=== PATIENT | female | born 1980 | race Caucasian/White ===

== ENCOUNTER → 2023-04-03 15:14 | Outpatient (BNVA) | payer BC, SELFPAY | PROVIDERS: PCP Student in an Organized Health Care Education/Training Program; Referring Provider Student in an Organized Health Care Education/Training Program; Visit Provider Physician Assistant Surgical ==

== ENCOUNTER 2023-04-24 14:44 | Outpatient (REF) | payer BC, SELFPAY ==
[2023-04-26 16:12] LABS: H Pylori Breath Test Negative (Negative)
== END 2023-04-24 14:45 | disposition home or self-care (01) ==
LOC: HO.LNP 14:44
PROVIDERS: PCP Student in an Organized Health Care Education/Training Program; Visit Provider Physician Assistant
DX: Z01.818 Encounter for other preprocedural examination (principal); E66.01 Morbid (severe) obesity due to excess calories; I10 Essential (primary) hypertension
CPT/HCPCS: 83013

== ENCOUNTER 2023-04-25 06:49 | Outpatient (REF) | payer BC, SELFPAY ==
--- NOTE | ~2023-04-25 | XR_ITS ---
EXAMINATION: XR CHEST CLINICAL INFORMATION: Preop COMPARISON: None available. TECHNIQUE: 2 views of the chest were obtained. FINDINGS: No significant abnormality is noted involving the heart, lungs, mediastinum, bony thorax or soft tissues. Degenerative changes of the spine. XR/XR chest 2V IMPRESSION: No evidence for acute disease in the chest.
[2023-04-25 07:07] LABS: MANUAL DIFF FLAG NO
[2023-04-25 07:52] LABS: Estimated Average Glucose 128 mg/dL; Hemoglobin A1c % 6.1 %
[2023-04-25 07:57] LABS: Basophils Percent Auto 0.3 % (0-2); Eosinophils Absolute Auto 0.1 X10*3/uL (0.0-0.4); Eosinophils Percent Auto 0.8 % (0-4); Hemoglobin 13.1 g/dl (12.0-16.0); Imm Gran Abs Auto 0.03 X10*3/uL (0.00-0.03); Imm Gran Pct Auto 0.3 % (0.0-0.4); Lymphocytes Absolute Auto 2.2 X10*3/uL (1.2-4.9); Lymphocytes Percent Auto 18.9 % (20-40); Mean Corpuscular HGB Conc 33.6 g/dl (31.0-35.0); Mean Corpuscular Hemoglobin 29.4 pg (27.0-33.0); Mean Corpuscular Volume 87.6 fL (80.0-98.0); Mean Platelet Volume 9.2 fL (9.4-12.3); Monocytes Absolute Auto 0.8 X10*3/uL (0.1-1.2); Monocytes Percent Auto 6.8 % (2-11); Neutrophils Absolute Auto 8.6 x10*3/uL (2.0-8.3); Neutrophils Percent Auto 72.9 % (45-73); Platelet Count 313 X10*3/uL (160-400); Red Blood Count 4.45 X10*6/uL (4.20-5.50); Red Cell Distribution Width 12.1 % (11.0-16.0); White Blood Count 11.8 X10*3/uL (4.8-10.8)
[2023-04-25 08:10] LABS: Alanine Aminotransferase 20 U/L (0-31); Albumin Level 4.4 g/dL (3.5-5.0); Alkaline Phosphatase 63 U/L (39-117); Anion Gap 15 (12-20); Aspartate Amino Transferase 24 U/L (5-31); Bilirubin Total 0.7 mg/dL (0.0-1.0); Blood Urea Nitrogen 12 mg/dL (9-16); C Reactive Protein 1.22 mg/dL (< or = 0.50); Calcium 9.2 mg/dL (8.4-10.2); Carbon Dioxide 21 mmol/L (22-29); Chloride 106 mmol/L (96-108); Cholesterol 225 mg/dL; Estimated Glomerular Filt Rate > 60; Glucose Random 144 mg/dL (60-115); HDL Cholesterol 48 mg/dL; Iron 131 mcg/dL (30-160); LDL Cholesterol Calculated 147 mg/dl; Percent Iron Saturation 36 % (15-50); Potassium 4.3 mmol/L (3.3-5.1); Sodium 138 mmol/L (135-145); Total Iron Binding Capacity 366 mcg/dL (228-428); Total Protein 7.6 g/dL (6.5-8.0); Triglycerides 152 mg/dL; Unsaturated Iron Binding 235 ug/dL
[2023-04-25 08:49] LABS: Ferritin 119 ng/mL (10-250); Folate 17.2 ng/mL (> or = 4.0); Insulin 29 uU/mL (2-29); TSH reflex Free T4 2.06 uIU/mL (0.32-4.0); Vitamin B12 335 pg/mL (200-900); Vitamin D 25-OH Total 33.8 ng/mL (>30)
--- NOTE | 2023-04-25 10:33 | ECG_ITS ---
Test Reason : OBESITY Blood Pressure : / mmHG Vent. Rate : 084 BPM Atrial Rate : 084 BPM P-R Int : 134 ms QRS Dur : 092 ms QT Int : 416 ms P-R-T Axes : 020 031 036 degrees QTc Int : 491 ms Normal sinus rhythm Prolonged QT Abnormal ECG No previous ECGs available Referred By: Janel León Electronically Signed By:Carlos Rome
[2023-04-26 22:24] LABS: PTHI 53 pg/mL (16-77)
[2023-04-29 15:28] LABS: Zinc 83 mcg/dL (60-130)
[2023-04-30 08:44] LABS: Vitamin B1 <6 nmol/L (8-30)
[2023-05-01 20:13] LABS: Vitamin A 48 mcg/dL (38-98)
== END 2023-04-25 06:50 | disposition home or self-care (01) ==
LOC: HO.XRAY 06:49
PROVIDERS: PCP Student in an Organized Health Care Education/Training Program; Visit Provider Physician Assistant
DX: Z01.818 Encounter for other preprocedural examination (principal); E66.01 Morbid (severe) obesity due to excess calories; I10 Essential (primary) hypertension; G47.33 Obstructive sleep apnea (adult) (pediatric); Z99.89 Dependence on other enabling machines and devices
CPT/HCPCS: 36415; 71046; 80053; 80061; 82306; 82607; 82728; 82746; 83036; 83525; 83540; 83970; 84425; 84443; 84590; 84630; 85025; 86140; 93005

== ENCOUNTER → 2023-05-23 16:13 | Outpatient (BNVA) | payer BC, SELFPAY | PROVIDERS: PCP Student in an Organized Health Care Education/Training Program; Visit Provider Physician Assistant ==

== ENCOUNTER 2023-05-28 09:35 | Outpatient (AMB) | payer BC, SELFPAY ==
--- NOTE | 2023-05-28 10:19 | MHC.AMNUTRGE ---
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 She follows it consistently and exactly. She doesn't feel hungry, she likes her shakes and bars. 9am premier shake premade 12pm PP bar, sami yog or cottage cheese 3pm shake 6pm dinner has a food scale and weighs her food out to 6oz protein, plus 8oz veg. usually has white fish, or chicken or pork tenderloin Exercise: walking outside 3x per week 1.5 miles and 2x per week does [employer] 2 mile walk Classes: completed, scored well, reviewed Dietary counseling reduction Who buys your food self Who prepares/cooks your food self Meal frequency regular: breakfast, lunch, dinner and snacks Lifestyle Eating out 1-3 times/week Reads food labels Yes Food frequency Dairy: daily, Fruit: daily, Vegetables: daily, Grains/pasta/breads/cereal (carbs): daily, Meats/poultry/fish (protein): daily, Meat substitutes/nuts/seeds/legumes: daily, Restaurants/fast foods: several times weekly, Water: daily, Soda: occasionally, Coffee: daily and Alcohol: occasionally Diagnosis Nutrition problem #1 overweight/obesity As related to (etiology) #1 excess energy intake and physical inactivity As evidenced by (sign/symptom) #1 high BMI Monitoring/Goals Nutrition problem monitoring total energy intake, HgbA1c, level of knowledge/skill, total PRO intake, total CHO intake, weight and oral fluids Outcome progress progressing Learning/Education Readiness to learn excellent Stages of change action Educational materials provided Yes Most Recent Diabetes Results: Cholesterol 225 mg/dL 04/25/23 HDL Cholesterol 48 mg/dL 04/25/23 Triglycerides 152 mg/dL 04/25/23 Creatinine 0.77 mg/dL (0.5-1.4) 04/25/23 Blood Urea Nitrogen 12 mg/dL (9-16) 04/25/23 Sodium 138 mmol/L (135-145) 04/25/23 Potassium 4.3 mmol/L (3.3-5.1) 04/25/23 Chloride 106 mmol/L (96-108) 04/25/23 Carbon Dioxide 21 mmol/L (22-29) L 04/25/23 Calcium 9.2 mg/dL (8.4-10.2) 04/25/23 AST 24 U/L (5-31) 04/25/23 ALT 20 U/L (0-31) 04/25/23 Total Protein 7.6 g/dL (6.5-8.0) 04/25/23 Albumin 4.4 g/dL (3.5-5.0) 04/25/23 [facility] Surgical History Hx of adenoidectomy Hx of tonsillectomy Family History Mother Hypertension Father Hypertension Brother No problems noted. Daughter No problems noted. Daughter No problems noted. Social History Alcohol intake: current Alcohol intake frequency: holidays/special occasions only Patient Tobacco Use Status: Never used Tobacco Assessment & Plan Assessment & Plan (1) Morbid obesity: Code(s): E66.01 - Morbid (severe) obesity due to excess calories Patient Instructions: Patient is cleared from a nutrition standpoint for bariatric surgery. Educational requirements have been completed. Reviewed vitamin supplementation and commitment to protein shake for several months post surgery. Encouraged communication with office as needed Coding Level of Care Code Nutr Indiv Intake (50207) Diagnoses Morbid obesity E66.01 Time Spent (min) 30 Comment in office
== END 2023-05-28 10:19 | disposition home or self-care (01) ==
LOC: HO.HBS 10:10
PROVIDERS: PCP Student in an Organized Health Care Education/Training Program; Visit Provider Dietitian, Registered
DX: E66.01 Morbid (severe) obesity due to excess calories (principal)

== ENCOUNTER → 2023-05-28 10:10 | Outpatient (BNVA) | payer BC, SELFPAY | PROVIDERS: PCP Student in an Organized Health Care Education/Training Program; Visit Provider Dietitian, Registered | DX: E66.01 Morbid (severe) obesity due to excess calories (principal); Z71.3 Dietary counseling and surveillance | CPT/HCPCS: 97802 ==

== ENCOUNTER 2023-06-18 15:52 | Outpatient (AMB) | payer BC, SELFPAY ==
--- NOTE | 2023-06-18 15:26 | MHC.OFFVISWM ---
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 Pt states she has a strong history of extended family members having Torsades syndrome, MD's and early from cardiac etiology. She is scheduled for ECHO and stress test next week. Meal plan coffee at 7am 8am -Premier shake 11 am -shake 3pm -bar or cottage cheese 6pm- 6 oz protien and vegetable and serving of fruit Exercise - 5d/ week - walks 1.5 miles in about 30 minutes. (300 calories). LS 2 miles 2 days per week, about 200 calories. Pre op work up completed as follows: SWL classes - 06/26 appts? - cleared ? ? ? RD appts - 05/28, cleared H pylori - negative Labs- done CXR -normal ECG -?Normal sinus rhythm Prolonged QT Abnormal ECG No previous ECGs available ECHO/Stress test on 06/22/23 ? ULS and UGI - 06/25/23 [facility] Surgical History Hx of adenoidectomy Hx of tonsillectomy Family History Mother Hypertension Father Hypertension Brother No problems noted. Daughter No problems noted. Daughter No problems noted. Social History Alcohol intake: current Alcohol intake frequency: holidays/special occasions only Patient Tobacco Use Status: Never used Tobacco Assessment & Plan Assessment & Plan (1) Morbid obesity: Code(s): E66.01 - Morbid (severe) obesity due to excess calories Plan: 43 yo woman has completed all pre operative work up including excellent weight loss, except for her radiology studies and cardiac testing due to abnormal ecg. All testing will be completed next week. No change to meal plna Exercise - increase walking to 2 miles in 40 minutes for at least 350 calories burned 5d/ week. Once her testing results are reviewed next week, if all normal, she will be scheduled with Dr Anguiano for surgical consult. Patient is still morbidly obese and is not considered stable at this time. I spent 28 minutes in total speaking with the patient via video conference counseling , reviewing records and charting in patients chart. . (2) HTN (hypertension) with goal to be determined: Code(s): I10 - Essential (primary) hypertension (3) VAHE on CPAP: Code(s): G47.33 - Obstructive sleep apnea (adult) (pediatric); Z99.89 - Dependence on other enabling machines and devices (4) Abnormal ECG: Code(s): R94.31 - Abnormal electrocardiogram [ECG] [EKG] Telehealth Telehealth Location of provider rendering services: practice address Location of patient: address on file Patient Identification confirmed using: Name, : Yes Telehealth method: video Patient verbally consented to treatment: Yes Patient verbally consented to billing insurance company: Yes Patient informed of any privacy concerns related to visit: Yes Coding Level of Care Code Tele Est Pt Level 4 (56527) Diagnoses Morbid obesity E66.01 HTN (hypertension) with goal to be determined I10 VAHE on CPAP G47.33; Z99.89 Abnormal ECG R94.31
== END 2023-06-18 15:55 | disposition home or self-care (01) ==
LOC: HO.HBS 15:52
PROVIDERS: PCP Student in an Organized Health Care Education/Training Program; Visit Provider Physician Assistant
DX: E66.01 Morbid (severe) obesity due to excess calories (principal); Z68.42 Body mass index [BMI] 45.0-49.9, adult; I10 Essential (primary) hypertension; G47.33 Obstructive sleep apnea (adult) (pediatric); Z99.89 Dependence on other enabling machines and devices
CPT/HCPCS: 99214

== ENCOUNTER → 2023-06-18 15:52 | Outpatient (BNVA) | payer BC, SELFPAY | PROVIDERS: PCP Student in an Organized Health Care Education/Training Program; Visit Provider Physician Assistant | DX: R94.31 Abnormal electrocardiogram [ECG] [EKG] (principal); E66.01 Morbid (severe) obesity due to excess calories; I10 Essential (primary) hypertension; G47.33 Obstructive sleep apnea (adult) (pediatric); Z99.89 Dependence on other enabling machines and devices ==

== ENCOUNTER → 2023-06-22 07:37 | Outpatient (REF) | payer BC, SELFPAY ==
--- NOTE | ~2023-06-22 | NM_ITS ---
Myocardial perfusion study Indication: Abnormal EKG to evaluate for myocardial ischemia Technique: The patient was brought in for a Lexiscan perfusion study on 06/22/2023. Patient performed low-level exercise and was injected 0.4 mg of Lexiscan intravenously. Within a minute of injection, 40 mCi of sestamibi was given intravenously. Images were obtained using the SPECT gamma camera interlaced with the gating device. Images were obtained in supine position. Resting perfusion study was performed on 07/09/2023. Patient was administered 40 mCi of sestamibi intravenously at rest. Images were then obtained in supine position. Images obtained with and without CT attenuation. Total DLP 68 mGy-cm. Images were processed with the software and compared side to side in short axis, horizontal long axis and vertical long axis views. Findings: Both stress and rest perfusion study are suboptimal due to intense subdiaphragmatic uptake interfering with cardiac uptake The stress perfusion study showed diffusely reduced uptake in all segments due to subdiaphragmatic uptake both on attenuated as well as non attenuated corrected images. The gated study shows reduced LV systolic function with calculated LVEF of 42%. The gated study shows normal wall thickening and contraction of segments. Resting study shows fusion pattern compared to stress perfusion study. Gating at rest reveals normal systolic wall motion with ejection fraction at 46%. The findings are consistent with suboptimal study due to diffuse reduced uptake in all segments.. NM/NM cardiolite stress test Impression: 1. Myocardial perfusion imaging study shows nondiagnostic study 2. Gated LVEF is 42% I gated imaging but may be erroneous due to bowel findings. Consider echocardiogram 3. Transient ischemic dilatation not evaluated EKG is nondiagnostic for ischemia
--- NOTE | 2023-06-22 07:41 | CA_ITS ---
Acquisition Time: 2023-06-22 09:30:53 Total Exercise Time: 00:02:00 Test Indications: ABN EKG Medications: SEE H Protocol: LEXISCAN Max HR: 139 BPM 78% of Pred: 178 BPM Max BP: 124/080 mmHG Max Work Load: 1.6 METS Pharmacological stress test with Lexiscan injection while walking slowly on treadmill, without anginal symptoms, with isolated PVC, with normotensive response to injection, with non-diagnsotic EKGs. Aminophylline 75mg IVP given to reverse Lexiscan. Nuclear images pending. Test reviewed with Mark Kenny. Referred By: Janel León Overread By: SHANNON FROST
--- NOTE | 2023-06-22 07:41 | CA_ITS ---
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 The calculated ejection fraction is 65% by biplane method. - No obvious valvular pathology seen on this study. - Small plaque is seen in the sino tubular ridge. Findings Procedure Information Contrast agent, definity, is being given per protocol without apparent complications. The study quality is limited by patients body habitus. Left Ventricle Normal left ventricular cavity size. The left ventricular systolic function is normal. The calculated ejection fraction is 65% by biplane method. There is no evidence of regional wall motion abnormalities. Diastolic function is normal for age. There is mild septal asymmetric hypertrophy. Right Ventricle Mildly increased right ventricular cavity size. There is normal right ventricular systolic function. Atria Both atria are normal in size. Aortic Valve There is a normal trileaflet aortic valve. There is no aortic valve stenosis. There is no aortic valve regurgitation. Mitral Valve The mitral valve appears normal. There is trace mitral valve regurgitation. There is no mitral valve stenosis. Pulmonic Valve The pulmonic valve is likely normal. Tricuspid Valve Normal tricuspid valve structure. There is trace tricuspid valve regurgitation. There is no evidence of pulmonary hypertension. Great Vessels The asc aorta is normal in size. Small plaque is seen in the sino tubular ridge. Venous The inferior vena cava is normal in size and collapses greater than 50% with inspiration. Pericardium/Pleural There is no evidence of pericardial effusion. Prior Study Comparison No prior study available for comparison. Recommendations, Care & Conclusions No obvious valvular pathology seen on this study. Measurements 2D Linear Measurements IVSd: 1.12 0.6-0.9/0.6-1.0 cm LVIDd: 5.06 3.9-5.3/4.2-5.9 cm LVIDd Index: 2.08 2.4-3.2/2.2-3.1 cm/m2 LVIDs: 3.59 2.0-3.6 cm LVPWd: 0.96 0.7-1.1 cm LA Diam: 3.70 2.7-3.8/3.0-4.0 cm LAIDs Index: 1.52 1.5-2.3 cm/m2 LV Mass: 243.66 67-162/88-224 g LV Mass Index: 100.27 43-95/49-115 g/m2 LVOT Diam: 2.40 3.0+(-)1.3 cm 2D Systolic Function EF 4C: 68.70 >55% EF 2C: 63.10 >55% EF BiP: 65.30 >55% Mitral Valve MV Pk E: 1.02 MV PK A: 0.51 MV Decel Time: 281.00 E/A: 2.00 E'Lateral: 11.70 E'Medial: 8.81 E/E' Med: 11.60 E/E' Lat: 8.70 PHT: 82.00 MVA PHT: 2.68 Decel [place]: 3.63 Aortic Valve AoV Pk Bert: 1.35 AoV Mn Bert: 0.97 AoV VTI: 0.31 AoV Pk Grad: 7.00 Aov Mn Grad: 4.00 NATHALIA Cont.VTI: 3.08 LVOT LVOT Pk Bret: 0.91 LVOT Mn Bert: 0.65 LVOT VTI: 0.21 LVOT Pk Grad: 3.00 LVOT Mn Grad: 2.00 LVOT Diam: 2.40 LVOT Area: 4.52 Diastolic Function MV Pk E: 1.02 MV Pk A: 0.51 E/A: 2.00 E'Medial: 8.81 E/E' Med: 11.60 E' Laterial: 11.70 E/E' Lat: 8.70 Right Ventricle TAPSE (mm): 24.30 TVS' Bert: 12.40 Tricuspid Valve TR Pk Bert: 2.25 TR Pk Grad: 20.00 RA Press: 8.00 RVSP: 28.00 Great Vessels Aorta Sinus of Valsalva: 3.21 2.0-3.5 cm Ao Asc: 3.60 2.1-3.4 cm Updated in Other Vendor System with Status of Final Mohit Ross MD electronically signed on 06/24/2023 9:09:50 AM with status of Final
== END ==
LOC: HO.CARD 07:37
PROVIDERS: PCP Student in an Organized Health Care Education/Training Program; Visit Provider Physician Assistant
DX: I10 Essential (primary) hypertension (principal); E66.01 Morbid (severe) obesity due to excess calories; R94.31 Abnormal electrocardiogram [ECG] [EKG]; G47.33 Obstructive sleep apnea (adult) (pediatric); Z99.89 Dependence on other enabling machines and devices
CPT/HCPCS: 78452; 93017; 93306; A9500; J0280; J2785; Q9957

== ENCOUNTER → 2023-06-22 07:41 | Outpatient (BNV) | payer BC, SELFPAY | PROVIDERS: PCP Student in an Organized Health Care Education/Training Program; Visit Provider Internal Medicine | DX: R94.31 Abnormal electrocardiogram [ECG] [EKG] (principal) | CPT/HCPCS: 78452; 93016; 93018; 93306 ==

== ENCOUNTER 2023-06-25 07:32 | Outpatient (REF) | payer BC, SELFPAY ==
--- NOTE | ~2023-06-25 | FL_ITS ---
EXAMINATION: XR FLUOROSCOPY UPPER GI WITH AIR CLINICAL INFORMATION: Obesity. Preop. COMPARISON: None available. TECHNIQUE: Upper GI was performed using thin and thick barium and effervescent granules. FINDINGS: Esophageal motility is normal. There is a small sliding-type hiatal hernia. No reflux is seen. The stomach and duodenum are normal-appearing. No fold thickening, mass, ulcer or stricture. FLUOROSCOPY TIME: 0.3 minutes DOSE AREA PRODUCT: 3.5 hernandez per centimeter squared. 20 saved fluoroscopic images. FL/FL upper GI w air IMPRESSION: Small sliding-type hiatal hernia otherwise unremarkable exam.
--- NOTE | ~2023-06-25 | US_ITS ---
EXAMINATION: US COMPLETE ABDOMEN WITH LIVER ELASTOGRAPHY CLINICAL INFORMATION: COMPARISON: None available. TECHNIQUE: Real-time imaging of the abdominal viscera. Noninvasive ultrasound liver fibrosis assessment is performed using Eva ElastPQ point quantification shear wave elastography (2D-SWE) with a C5-2 MHz transducer. Multiple elastography samples are obtained. FINDINGS: PANCREAS: Normal. The visualized pancreatic head and body are normal in appearance. The remainder of the pancreas is obscured from visualization by the overlying bowel gas. ABDOMINAL AORTA: The proximal, middle, and distal aortic segments are normal in caliber. INFERIOR VENA CAVA: Visualized portions are normal. LIVER: The liver demonstrates normal size, contour and slightly increased echogenicity. No focal lesion or intrahepatic biliary duct dilatation. The right lobe measures 19.5 cm in length. The left lobe measures 11.1 cm in length. Portal flow is towards the liver (hepatopetal). Shear wave liver elastography median stiffness is 1.21 m/s (reference: normal median stiffness is 1.3 m/s or less). IQR/median stiffness to assess sampling precision is 0.09 (reference: good quality data set is IQR/median stiffness of 0.15 or less). GALLBLADDER: Normal. The gallbladder is physiologically distended without evidence of stones, sludge, polyps, wall thickening or pericholecystic fluid. COMMON BILE DUCT: Normal in caliber measuring 0.5 cm in diameter. RIGHT KIDNEY: Normal. No hydronephrosis. No renal calculi or focal parenchymal lesions. The kidney measures 11.1 cm in maximum dimension. LEFT KIDNEY: Normal. No hydronephrosis. No renal calculi or focal parenchymal lesions. The kidney measures 11.9 cm in maximum dimension. SPLEEN: No focal finding. The spleen measures 13.9 cm in maximum dimension. FREE FLUID: None. US/US abdomen comp w elastography IMPRESSION: 1. There is hepatosplenomegaly. 2. There is slight increase in hepatic echotexture, consistent with fatty infiltration or hepatocellular disease. Please correlate clinically. No focal hepatic mass or intrahepatic biliary dilatation is seen. 3. Liver elastography: Measurements are consistent with a high probability of normal liver stiffness. REFERENCE: Society of Radiologists in Ultrasound Liver Stiffness Thresholds (2020): LIVER STIFFNESS THRESHOLDS: *Liver Stiffness equal or less than 1.3 m/s: High probability of being normal. *Liver Stiffness less than 1.7 m/s: In the absence of other known clinical signs, rules out compensated advanced chronic liver disease. *Liver Stiffness 1.7-2.1 m/s: Suggestive of compensated advanced chronic liver disease but need further test for confirmation. *Liver Stiffness over 2.1 m/s: Rules in compensated advanced chronic liver disease. *Liver Stiffness over 2.4 m/s: Suggestive of clinically significant portal hypertension. QUALITY OF DATA SET: *IQR/Median value equal or less than 0.15 implies a quality data set. *IQR/Median value over 0.15 implies a poor quality data set. SIGNIFICANT CHANGE FROM PRIOR EXAM: Significant change if liver stiffness measurement is 10% or greater from prior exam. OTHER CONSIDERATIONS: The stage of liver fibrosis may be overestimated in the setting of acute hepatitis, liver inflammation, elevated liver function tests, hepatic vascular congestion, obstructive cholestasis, non-fasting state, and infiltrative diseases such as amyloidosis and lymphoma. In some patients with NAFLD, the liver stiffness thresholds for compensated advanced chronic liver disease may be lower. In causes other than viral hepatitis and NAFLD, liver stiffness thresholds are not well established.
== END 2023-06-25 07:33 | disposition home or self-care (01) ==
LOC: HO.US 07:32
PROVIDERS: PCP Student in an Organized Health Care Education/Training Program; Visit Provider Physician Assistant
DX: Z01.818 Encounter for other preprocedural examination (principal); E66.01 Morbid (severe) obesity due to excess calories; G47.33 Obstructive sleep apnea (adult) (pediatric); I10 Essential (primary) hypertension; Z99.89 Dependence on other enabling machines and devices
CPT/HCPCS: 74246; 76705; 76981

== ENCOUNTER → 2023-06-25 07:35 | Outpatient (BNV) | payer BC, SELFPAY | PROVIDERS: PCP Student in an Organized Health Care Education/Training Program; Visit Provider Radiology Diagnostic Radiology | DX: E66.01 Morbid (severe) obesity due to excess calories (principal); Z68.42 Body mass index [BMI] 45.0-49.9, adult; Z01.818 Encounter for other preprocedural examination | CPT/HCPCS: 74246 ==

== ENCOUNTER 2023-07-10 12:40 | Outpatient (AMB) | payer BC, SELFPAY ==
--- NOTE | 2023-07-10 12:42 | MHC.OFFVISWM ---
Intake VS Expanded 07/10/23 12:47 Height 5 ft 8 in Weight 289 lb 6.4 oz BMI 44.0 BP 163/80 H Blood Pressure Location Rt brachial Blood Pressure Position Sitting Pulse 86 Pulse Source Pulse Oximeter Temp 98.2 F Temperature Source Tympanic Pulse Oximetry 100 Oxygen Delivery Method Room Air Body Fat 124.6 Body Fat Percentage 43.1 Free Fat Mass 164.6 Muscle Mass 156.6 Visceral Mass 13.0 Water Mass 117.6 BMR 2,325 Intake Visit Reasons: (OV) F/U SWL Allergies No Known Allergies Allergy (Verified 07/10/23 12:49) HPI HPI Comments History of Present Illness Details The patient is a 43-year-old woman who started to developed weight gain and related complications and adolescents. She has tried numerous medical weight loss programs but always regained weight. She denies any intra-abdominal operations and does endorse a family history of obesity noting that her mother had a gastric bypass with subsequent weight regain. Her entire family and colleagues are supportive of her moving forward with a sleeve gastrectomy. She presents today 289.4/BMI 44.0 representing a total weight loss of 50 lb since entering the surgical weight loss program in early April 24, 2023 with the documented new patient weight of 339.8/BMI 51.7. The patient's obesity related comorbidities include obstructive sleep apnea on CPAP and hypertension. While she is trying fad diets, weight watchers and other portion control weight loss attempts, she denies any prior history of prescription medications. She notes a family history of torsades syndrome on her father/father side and was sent to Cardiology regarding her prolonged QT interval on EKG. 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 JONATHAN 1 ESS 0 GERD 0 QOL 136 Pre op work up completed as follows: SWL classes - 06/26 appts? - cleared ? ? ? RD appts - 05/28, cleared H pylori - negative Labs- done CXR -normal ECG -?Normal sinus rhythm Prolonged QT Abnormal ECG No previous ECGs available ECHO/Stress test on results pending, Echo showed EF 65% & no valvular issues; ? Abd U/S +HSM, normal elastography, no gall stones UGI small HH PFSH Surgical History Hx of adenoidectomy Hx of tonsillectomy Family History Mother Hypertension Father Hypertension Brother No problems noted. Daughter No problems noted. Daughter No problems noted. Social History Alcohol intake: current Alcohol intake frequency: holidays/special occasions only Patient Tobacco Use Status: Never used Tobacco Review of Systems Const All systems reviewed & are unremarkable except as noted in HPI and below Reports as per HPI Physical Exam Vital Signs: Last Vital Signs Temp 98.2 F 07/10/23 12:47 Pulse 86 07/10/23 12:47 BP 163/80 H 07/10/23 12:47 Pulse Ox 100 07/10/23 12:47 Oxygen Delivery Method Room Air 07/10/23 12:47 BMI result Body Mass Index 44.0 The patient is non-toxic & in good spirits NC/AT, PERRLA, EOMI Mood, affect & judgment all appear appropriate Sclera anicteric conjunctiva pink and moist Oropharynx is clear with no aphthous ulcers, Mallampati class 4, mucous membranes moist Neck is supple with no masses, adenopathy or bruits Thyroid is nontender and free of dominant masses Heart is regular, normal S1-S2 no rubs or murmurs Lungs are clear and equal anteriorly with no audible wheezing, rubs or dullness to percussion Abdomen is obese with no demonstrable hernias. No HSM, rebound, rigidity, guarding, masses or bruits are present. Rectal exam is deferred Skin has good turgor and is free of rashes Extremities free of cyanosis clubbing edema Results Reviewed Results Reviewed: Labs dated 04/25/2023 Hemoglobin 13.1 with normal Sittig/normochromic indices and normal iron studies, white blood cell count was slightly elevated 11.8, platelets 313K BUN 12, creatinine 0.77, electrolytes normal, LFTs normal CRP elevated at 1.22, vitamin B1 low and treated Other multivitamins are within normal parameters Lipids were normal; TAG 152 H pylori negative Diagnostic imaging CXR 04/25/23 NAD 06/25/23 UGI small HH Abd U/S +hepatosplenomegaly and NAFLD, normal liver elastography, CBD 0.5 cm; no gallstones Cardiac echo showed no valvular issues and an ejection fraction of 65% EKG showed prolonged QT otherwiseNSR Myocardial perfusion test was nondiagnostic Assessment & Plan Assessment & Plan (1) BMI 40.0-44.9, adult: Code(s): Z68.41 - Body mass index [BMI] 40.0-44.9, adult (2) VAHE on CPAP: Code(s): G47.33 - Obstructive sleep apnea (adult) (pediatric); Z99.89 - Dependence on other enabling machines and devices (3) HTN (hypertension) with goal to be determined: Code(s): I10 - Essential (primary) hypertension (4) Abnormal ECG: Code(s): R94.31 - Abnormal electrocardiogram [ECG] [EKG] (5) Hepatosplenomegaly: Code(s): R16.2 - Hepatomegaly with splenomegaly, not elsewhere classified (6) Morbid obesity: Code(s): E66.01 - Morbid (severe) obesity due to excess calories (7) NAFLD (nonalcoholic fatty liver disease): Code(s): K76.0 - Fatty (change of) liver, not elsewhere classified (8) Vitamin B1 deficiency: Code(s): E51.9 - Thiamine deficiency, unspecified Plan The patient is congratulated on her 50 lb weight loss since entering the surgical weight loss program and her healthy lifestyle choices in changes. We discussed the option of continued medical weight loss versus surgical weight loss, specifically a laparoscopic sleeve gastrectomy, possible hiatal hernia repair, intraoperative endoscopy and possible ventral hernia repair. She seems to understand her options and would like to proceed with sleeve gastrectomy. The importance of healthy lifestyle changes, high-protein/high-fiber low-carbohydrate/low-fat diet and increased activity to optimize surgical weight loss was reviewed. We briefly reviewed the typical pre/postoperative course and the inherent risks of bleeding, infection, DVT that could cause fatal PE, staple line leaks that could lead to sepsis as well as the most common complication, weight regain if maladaptive eating and sedentary behavior resume. The patient had some questions specific regarding her mother's weight gain after gastric bypass. The importance of lifelong follow-up since obesity is a chronic medical condition was discussed and apparently understood by the patient. Will submit for insurance; patient will follow-up with me for 45 minute preoperative visit and review consents. Will also need liver shrinking diet appointment with PAs. Coding Level of Care Code Est Pt Level 4 (50568) Diagnoses BMI 40.0-44.9, adult Z68.41 VAHE on CPAP G47.33; Z99.89 HTN (hypertension) with goal to be determined I10 Abnormal ECG R94.31 Hepatosplenomegaly R16.2 Morbid obesity E66.01 NAFLD (nonalcoholic fatty liver disease) K76.0 Vitamin B1 deficiency E51.9
[2023-07-10 12:47] VITALS: BP 163/80; PULSE 86; TEMP 36.8; O2SAT 100; BMI 44.0
== END 2023-07-10 13:48 | disposition home or self-care (01) ==
PROVIDERS: PCP Student in an Organized Health Care Education/Training Program; Visit Provider Surgery
DX: E66.01 Morbid (severe) obesity due to excess calories (principal); Z68.41 Body mass index [BMI] 40.0-44.9, adult; G47.33 Obstructive sleep apnea (adult) (pediatric); Z99.89 Dependence on other enabling machines and devices; I10 Essential (primary) hypertension; R94.31 Abnormal electrocardiogram [ECG] [EKG]; R16.2 Hepatomegaly with splenomegaly, not elsewhere classified; K76.0 Fatty (change of) liver, not elsewhere classified; E51.9 Thiamine deficiency, unspecified
CPT/HCPCS: 99215

== ENCOUNTER → 2023-07-10 12:40 | Outpatient (BNVA) | payer BC, SELFPAY | PROVIDERS: PCP Student in an Organized Health Care Education/Training Program; Visit Provider Surgery ==

== ENCOUNTER 2023-07-17 12:43 | Outpatient (AMB) | payer BC, SELFPAY ==
--- NOTE | 2023-07-17 12:58 | A.OFFVIS_ITS ---
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 Patient herself does not have any specific complaints like angina or shortness of breath or in fact anything else. She can do unlimit ed physical activity with no issues. She underwent Lexiscan myocardial perfusion imaging study but that was of limited quality due to body habitus. Patient has since been referred to us for further workup. Additionally, her EKG had also shown prolonged QT interval. Patient herself does not have any history of syncope or any such instance but there is a family history of torsade in her great uncle which happened probably around 5-6 decades ago but unknown details. [facility] Surgical History Hx of adenoidectomy Hx of tonsillectomy Family History Mother Hypertension Father Hypertension Brother No problems noted. Daughter No problems noted. Daughter No problems noted. Social History Alcohol intake: current Alcohol intake frequency: holidays/special occasions only Patient Tobacco Use Status: Never used Tobacco Review of Systems Const Denies weakness ENT Denies dizziness Card Denies chest pain, Denies chest pain with activity, Denies syncope, Denies rapid heart rate, Denies pedal edema, Denies edema, Denies leg edema, Denies lightheadedness, Denies palpitations, Denies dyspnea, Denies dyspnea on exertion and Denies orthopnea Resp Denies cough, Denies dyspnea and Denies dyspnea on exertion GI Denies hematochezia and Denies change in stool character Musc Denies abnormal gait, Denies muscle cramps, Denies muscle weakness, Denies numbness, Denies radiating pain into limb and Denies tingling Neuro Denies abnormal gait, Denies dizziness, Denies syncope, Denies numbness, Denies tingling and Denies weakness Endo Denies palpitations Physical Exam Vital Signs: Last Vital Signs Pulse 91 07/17/23 12:59 BP 124/68 07/17/23 12:59 BMI result Body Mass Index 43.6 Const General: comfortable and no acute distress Orientation/consciousness: patient oriented x3 HEENT Other: Unremarkable Head: Yes normal to inspection Neck Neck: Yes normal visual inspection Chest Chest palpation & inspection: normal inspection of the chest Resp Auscultation: clear to auscultation bilaterally Cardio Palpation: normal PMI Heart sounds: S1 normal heart sound present, S2 normal heart sound present, no gallops, no murmurs and no rubs GI Palpation (GI): Soft to palpation Back/Spine/Pelvis Other: unremarkable Skin General skin exam: no rashes or lesions noted Neuro General: patient oriented x3 Extrem General: Yes normal to inspection Psych Mental Status: mental status grossly normal Office Procedures EKG Details: EKG shows sinus rhythm at 69/Min; no significant ST-T changes; normal AK; corrected QT prolonged to 492 milliseconds. [id number], Complete Assessment & Plan Assessment & Plan (1) Pre-operative cardiovascular examination: Code(s): Z01.810 - Encounter for preprocedural cardiovascular examination (2) Morbid obesity: Code(s): E66.01 - Morbid (severe) obesity due to excess calories (3) HTN (hypertension) with goal to be determined: Code(s): I10 - Essential (primary) hypertension (4) Prolonged QT interval: Code(s): R94.31 - Abnormal electrocardiogram [ECG] [EKG] Plan Cardiac studies reviewed. Twelve lead EKG shows prolonged QT. corrected QT is 492 milliseconds. Echocardiogram with LVEF of 65%. Mild septal hypertrophy. No significant valvular issues. Lexiscan myocardial perfusion imaging study is of markedly limited quality due to body habitus. Overall, do not believe she has any obstructive CAD even though the stress test is of suboptimal quality. She does not need further workup in that regard. With regard to prolonged QT, we discussed about this in great detail. Family history also reviewed. History of torsade in great uncle many decades ago. Apparently, at some point it was discussed with her family that they all should get screened for prolonged QT syndromes. To work this up further, we can do a 3 day Holter monitor. This is to look for any ventricular ectopy. Ideally, should also do a exercise stress test to look for any inducible ventricular arrhythmias. Also discussed about genetic studies and she is willing and hence we will refer her to the [facility]. Once we have the results, probably start her on a small dose of beta-sree like propranolol or nadolol. Avoiding QT prolongation drugs also discussed. We will see her back in a couple months. Should be able to proceed with bariatric procedures as planned. Orders: Orders CA stress test Today R94.31 - Abnormal electrocardiogram [ECG] [EKG] ECG 3 day holter monitor Today R94.31 - Abnormal electrocardiogram [ECG] [EKG] Referrals Genetics Referral R94.31 - Abnormal electrocardiogram [ECG] [EKG] Coding Level of Care Code New Pt Level 4 (59832) Diagnoses Pre-operative cardiovascular examination Z01.810 Morbid obesity E66.01 HTN (hypertension) with goal to be determined I10 Prolonged QT interval R94.31 CPT Codes EKG - CPT: 19070-[id number], Complete ([id number])
[2023-07-17 12:59] VITALS: BP 124/68; PULSE 91; BMI 43.6
== END 2023-07-17 13:37 | disposition home or self-care (01) ==
PROVIDERS: PCP Student in an Organized Health Care Education/Training Program; Visit Provider Internal Medicine
DX: E66.01 Morbid (severe) obesity due to excess calories (principal); I10 Essential (primary) hypertension; R94.31 Abnormal electrocardiogram [ECG] [EKG]; Z01.810 Encounter for preprocedural cardiovascular examination
CPT/HCPCS: 93010; 99204

== ENCOUNTER → 2023-07-17 12:43 | Outpatient (BNVA) | payer BC, SELFPAY | PROVIDERS: PCP Student in an Organized Health Care Education/Training Program; Visit Provider Internal Medicine | DX: Z01.810 Encounter for preprocedural cardiovascular examination (principal); R94.31 Abnormal electrocardiogram [ECG] [EKG]; I10 Essential (primary) hypertension; E66.01 Morbid (severe) obesity due to excess calories; Z68.41 Body mass index [BMI] 40.0-44.9, adult; Z99.89 Dependence on other enabling machines and devices | CPT/HCPCS: 93005 ==

== ENCOUNTER 2023-07-20 08:37 | Outpatient (AMB) | payer BC, SELFPAY ==
--- NOTE | 2023-07-20 08:56 | A.OFFVIS_ITS ---
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 TBWL is 56.6 lbs or 16.7 %. Pre op appt with Dr Rhodes with 07/25, saw pre op class last night - questions about bowel prep. Will start liquid diet today or tomorrow. Coffee 1 8 oz cup - sugar free creamer. 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 7 am - shake 11 am - shake 3pm - cc or bar 6pm - dinner bed 9-10 pm [facility] Surgical History Hx of adenoidectomy Hx of tonsillectomy Family History Mother Hypertension Father Hypertension Brother No problems noted. Daughter No problems noted. Daughter No problems noted. Social History Alcohol intake: current Alcohol intake frequency: holidays/special occasions only Patient Tobacco Use Status: Never used Tobacco Physical Exam Vital Signs: Last Vital Signs Temp 98.8 F 07/20/23 09:05 Pulse 93 07/20/23 09:05 BP 157/69 H 07/20/23 09:05 Pulse Ox 97 07/20/23 09:05 Oxygen Delivery Method Room Air 07/20/23 09:05 BMI result Body Mass Index 43.1 Assessment & Plan Assessment & Plan (1) Morbid obesity: Code(s): E66.01 - Morbid (severe) obesity due to excess calories Plan: Pt is scheduled for surgery o 08/01. We reviewed pre op meal plan of 4 shakes, at 7am/11am/3pm/6pm. Will let me know if needs more. We also reviewed her psot op meal plan and pre op class. Bariatirc handbook given to pt today. Patient is morbidly obese and is not considered stable at this time. I spent 30 minutes in total with patient reviewing/updating records, examining the patient and counseling the patient on weight management as detailed above. (2) HTN (hypertension) with goal to be determined: Code(s): I10 - Essential (primary) hypertension (3) VAHE on CPAP: Code(s): G47.33 - Obstructive sleep apnea (adult) (pediatric); Z99.89 - Dependence on ot her enabling machines and devices Coding Level of Care Code Est Pt Level 4 (26184) Diagnoses Morbid obesity E66.01 HTN (hypertension) with goal to be determined I10 VAHE on CPAP G47.33; Z99.89
[2023-07-20 09:05] VITALS: BP 157/69; PULSE 93; TEMP 37.1; O2SAT 97; BMI 43.1
== END 2023-07-20 09:37 | disposition home or self-care (01) ==
PROVIDERS: PCP Student in an Organized Health Care Education/Training Program; Visit Provider Physician Assistant
DX: E66.01 Morbid (severe) obesity due to excess calories (principal); Z68.41 Body mass index [BMI] 40.0-44.9, adult
CPT/HCPCS: 99213

== ENCOUNTER → 2023-07-20 08:37 | Outpatient (BNVA) | payer BC, SELFPAY | PROVIDERS: PCP Student in an Organized Health Care Education/Training Program; Visit Provider Physician Assistant ==

== ENCOUNTER 2023-07-24 15:10 | Outpatient (AMB) | payer BC, SELFPAY ==
--- NOTE | 2023-07-24 15:19 | A.OFFVIS_ITS ---
Intake VS Expanded 07/24/23 15:28 Height 5 ft 8 in Weight 279 lb 12.8 oz BMI 42.5 BP 132/73 Blood Pressure Location Rt brachial Blood Pressure Position Sitting Pulse 93 Pulse Source Pulse Oximeter Temp 98.1 F Temperature Source Tympanic Pulse Oximetry 98 Oxygen Delivery Method Room Air Body Fat 117.0 Body Fat Percentage 41.8 Free Fat Mass 162.8 Muscle Mass 154.6 Visceral Mass 12.0 Water Mass 116.4 BMR 2,285 Intake Visit Reasons: (OV) Pre Op LSG 08/01/23 Allergies No Known Allergies Allergy (Verified 07/20/23 08:59) HPI HPI Comments History of Present Illness Details The patient is a 43-year-old woman who started to developed weight gain and related complications and adolescents. She has tried numerous medical weight loss programs but always regained weight. She denies any intra-abdominal operations and does endorse a family history of obesity noting that her mother had a gastric bypass with subsequent weight regain. Her entire family and colleagues are supportive of her moving forward with a sleeve gastrectomy. She presents today 279.8/BMI 42.5 representing a total weight loss of 60 lb since entering the surgical weight loss program in early April 24, 2023 with the documented new patient weight of 339.8/BMI 51.7. The patient's obesity related comorbidities include obstructive sleep apnea on CPAP and hypertension. While she is trying fad diets, weight watchers and other portion control weight loss attempts, she denies any prior history of prescription medications. She notes a family history of torsades syndrome on her father/father side and was sent to Cardiology regarding her prolonged QT interval on EKG. 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 JONATHAN 1 ESS 0 GERD 0 QOL 136 Pre op work up completed as follows: [facility] classes - 06/26 appts? - cleared ? ? ? RD appts - 05/28, cleared H pylori - negative Labs- done CXR -normal ECG -?Normal sinus rhythm Prolonged QT Abnormal ECG No previous ECGs available ECHO/Stress test on results pending, Echo showed EF 65% & no valvular issues; ? Abd U/S +HSM, normal elastography, no gall stones UGI small HH PFSH Medical History HTN (hypertension) Hx of hiatal hernia Sleep apnea Surgical History Hx of adenoidectomy Hx of tonsillectomy Family History Mother Hypertension Father Hypertension Brother No problems noted. Daughter No problems noted. Daughter No problems noted. Social History Are you a primary elderly caregiver to a significant other at home: No Do you presently have visiting nurse or other home services: No Alcohol intake: current Alcohol intake frequency: does not drink Patient Tobacco Use Status: Never used Tobacco Physical Exam The patient is non-toxic & in good spirits NC/AT, PERRLA, EOMI Mood, affect & judgment all appear appropriate Sclera anicteric conjunctiva pink and moist Oropharynx is clear with no aphthous ulcers, Mallampati class 4, mucous membranes moist Abdomen is obese with no demonstrable hernias. No HSM, rebound, rigidity, guarding, masses or bruits are present. Rectal exam is deferred Skin has good turgor and is free of rashes Extremities free of cyanosis clubbing edema Results Reviewed Results Reviewed: Labs dated 04/25/2023 Hemoglobin 13.1 with normal Sittig/normochromic indices and normal iron studies, white blood cell count was slightly elevated 11.8, platelets 313K BUN 12, creatinine 0.77, electrolytes normal, LFTs normal CRP elevated at 1.22, vitamin B1 low and treated Other multivitamins are within normal parameters Lipids were normal; TAG 152 H pylori negative Diagnostic imaging CXR 04/25/23 NAD 06/25/23 UGI small HH Abd U/S +hepatosplenomegaly and NAFLD, normal liver elastography, CBD 0.5 cm; no gallstones Cardiac echo showed no valvular issues and an ejection fraction of 65% EKG showed prolonged QT otherwiseNSR Myocardial perfusion test was nondiagnostic Cardiology note by Dr. Ross is reviewed and plan for outpatient Holter regarding the family history of torsades as well as genetic testing option it is planned, patient is cleared for surgery Assessment & Plan Assessment & Plan (1) Morbid obesity: Code(s): E66.01 - Morbid (severe) obesity due to excess calories (2) HTN (hypertension) with goal to be determined: Code(s): I10 - Essential (primary) hypertension (3) VAHE on CPAP: Code(s): G47.33 - Obstructive sleep apnea (adult) (pediatric); Z99.89 - Dependence on other enabling machines and devices (4) BMI 40.0-44.9, adult: Code(s): Z68.41 - Body mass index [BMI] 40.0-44.9, adult (5) Hepatosplenomegaly: Code(s): R16.2 - Hepatomegaly with splenomegaly, not elsewhere classified (6) NAFLD (nonalcoholic fatty liver disease): Code(s): K76.0 - Fatty (change of) liver, not elsewhere classified (7) Vitamin B1 deficiency: Code(s): E51.9 - Thiamine deficiency, unspecified (8) Prolonged QT interval: Code(s): R94.31 - Abnormal electrocardiogram [ECG] [EKG] Plan The patient is congratulated on her healthy lifestyle changes and is interested in proceeding with a laparoscopic sleeve gastrectomy, possible hiatal hernia repair, intraoperative upper endoscopy and possible ventral hernia repair. The option of medical management continued medical weight loss was offered but declined. I reviewed the inherent risks of this procedure which include, but are not limited to: Bleeding that could require another operation or blood transfusion; the inherent risks of transfusion reaction infectious disease from blood transfusions; the risk of staple line leaks that could cause sepsis, multi- system organ failure and ; the risk of mesenteric or deep vein thrombosis of the lower extremities that could cause a fatal pulmonary embolism was reviewed; the risk of GERD that could require conversion to gastric bypass was discussed; the risk of recurrent hiatal hernia, especially in the setting of weight regain was reviewed. The risk of weight regain if maladaptive eating and sedentary behavior continue was discussed. The importance of proper diet and increased activity to augment surgical weight loss and the fact that no operation would result in weight loss of poor dietary decisions and sedentary behavior are resumed were discussed at length and apparently understood. The patient had the option of having a risk control consultant present and declined this option. Prescriptions for perioperative medications including bowel prep were sent to her pharmacy. For unclear reasons, the patient's pantoprazole is currently pending. She is advised to contact me by text tomorrow if there is a signifi cant financial burden as any PPI could be considered. Patient's preoperative quiz was reviewed with her. She kept the copy for a postoperative Education. The patient is already obtained her celebrate 4 in 1 shake mix. Preoperative instructions regarding bowel prep, typical perioperative course, postoperative course in the importance of hydration, ambulation, incentive spirometry were discussed. Patient was given my cellphone for communication purposes. Her questions seemed to be satisfactorily answered. Orders: Orders Type and Screen Today E51.9 - Thiamine deficiency, unspecified, E66.01 - Morbid (severe) obesity due to excess calories, G47.33 - Obstructive sleep apnea (adult) (pediatric), I10 - Essential (primary) hypertension, K76.0 - Fatty (change of) liver, not elsewhere classified, R16.2 - Hepatomegaly with splenomegaly, not elsewhere classified, Z68.41 - Body mass index [BMI] 40.0- 44.9, adult, Z99.89 - Dependence on other enabling machines and devices Vitamin B12 Today E51.9 - Thiamine deficiency, unspecified, E66.01 - Morbid (severe) obesity due to excess calories, G47.33 - Obstructive sleep apnea (adult) (pediatric), I10 - Essential (primary) hypertension, K76.0 - Fatty (change of) liver, not elsewhere classified, R16.2 - Hepatomegaly with splenomegaly, not elsewhere classified, Z68.41 - Body mass index [BMI] 40.0- 44.9, adult, Z99.89 - Dependence on other enabling machines and devices Comprehensive Met. Panel Today E51.9 - Thiamine deficiency, unspecified, E66.01 - Morbid (severe) obesity due to excess calories, G47.33 - Obstructive sleep apnea (adult) (pediatric), I10 - Essential (primary) hypertension, K76.0 - Fatty (change of) liver, not elsewhere classified, R16.2 - Hepatomegaly with splenomegaly, not elsewhere classified, Z68.41 - Body mass index [BMI] 40.0- 44.9, adult, Z99.89 - Dependence on other enabling machines and devices C Reactive Protein Today E51.9 - Thiamine deficiency, unspecified, E66.01 - Morbid (severe) obesity due to excess calories, G47.33 - Obstructive sleep apnea (adult) (pediatric), I10 - Essential (primary) hypertension, K76.0 - Fatty (change of) liver, not elsewhere classified, R16.2 - Hepatomegaly with splenomegaly, not elsewhere classified, Z68.41 - Body mass index [BMI] 40.0- 44.9, adult, Z99.89 - Dependence on other enabling machines and devices Ferritin Today E51.9 - Thiamine deficiency, unspecified, E66.01 - Morbid (severe) obesity due to excess calories, G47.33 - Obstructive sleep apnea (adult) (pediatric), I10 - Essential (primary) hypertension, K76.0 - Fatty (change of) liver, not elsewhere classified, R16.2 - Hepatomegaly with splenomegaly, not elsewhere classified, Z68.41 - Body mass index [BMI] 40.0- 44.9, adult, Z99.89 - Dependence on other enabling machines and devices Hemoglobin A1c Today E51.9 - Thiamine deficiency, unspecified, E66.01 - Morbid (severe) obesity due to excess calories, G47.33 - Obstructive sleep apnea (adult) (pediatric), I10 - Essential (primary) hypertension, K76.0 - Fatty (change of) liver, not elsewhere classified, R16.2 - Hepatomegaly with splenomegaly, not elsewhere classified, Z68.41 - Body mass index [BMI] 40.0- 44.9, adult, Z99.89 - Dependence on other enabling machines and devices IRON PROFILE Today E51.9 - Thiamine deficiency, unspecified, E66.01 - Morbid (severe) obesity due to excess calories, G47.33 - Obstructive sleep apnea (adult) (pediatric), I10 - Essential (primary) hypertension, K76.0 - Fatty (change of) liver, not elsewhere classified, R16.2 - Hepatomegaly with spl enomegaly, not elsewhere classified, Z68.41 - Body mass index [BMI] 40.0-44.9, adult, Z99.89 - Dependence on other enabling machines and devices Lipid Panel Today E51.9 - Thiamine deficiency, unspecified, E66.01 - Morbid (severe) obesity due to excess calories, G47.33 - Obstructive sleep apnea (adult) (pediatric), I10 - Essential (primary) hypertension, K76.0 - Fatty (ch blank of) liver, not elsewhere classified, R16.2 - Hepatomegaly with splenomegaly, not elsewhere classified, Z68.41 - Body mass index [BMI] 40.0- 44.9, adult, Z99.89 - Dependence on other enabling machines and devices PTHI Today E51.9 - Thiamine deficiency, unspecified, E66.01 - Morbid (severe) obesity due to excess calories, G47.33 - Obstructive sleep apnea (adult) (pedia tric), I10 - Essential (primary) hypertension, K76.0 - Fatty (change of) liver, not elsewhere classified, R16.2 - Hepatomegaly with splenomegaly, not elsewhere classified, Z68.41 - Body mass index [BMI] 40.0-44.9, adult, Z99.89 - Dependence on other enabling machines and devices TSH reflex Free T4 Today E51.9 - Thiamine deficiency, unspecified, E66.01 - Morbid (severe) obesity due to excess calories, G47.33 - Obstructive sleep apnea (adult) (pediatric), I10 - Essential (primary) hypertension, K76.0 - Fatty (change of) liver, not elsewhere classified, R16.2 - Hepatomegaly with splenomegaly, not elsewhere classified, Z68.41 - Body mass index [BMI] 40.0- 44.9, adult, Z99.89 - Dependence on other enabling machines and devices Vitamin A Today E51.9 - Thiamine deficiency, unspecified, E66.01 - Morbid (severe) obesity due to excess calories, G47.33 - Obstructive sleep apnea (adult) (pediatric), I10 - Essential (primary) hypertension, K76.0 - Fatty (change of) liver, not elsewhere classified, R16.2 - Hepatomegaly with splenomegaly, not elsewhere classified, Z68.41 - Body mass index [BMI] 40.0- 44.9, adult, Z99.89 - Dependence on other enabling machines and devices Vitamin B1 Today E51.9 - Thiamine deficiency, unspecified, E66.01 - Morbid (severe) obesity due to excess calories, G47.33 - Obstructive sleep apnea (adult) (pediatric), I10 - Essential (primary) hypertension, K76.0 - Fatty (change of) liver, not elsewhere classified, R16.2 - Hepatomegaly with splenomegaly, not elsewhere classified, Z68.41 - Body mass index [BMI] 40.0- 44.9, adult, Z99.89 - Dependence on other enabling machines and devices Vitamin D 25-OH Total Today E51.9 - Thiamine deficiency, unspecified, E66.01 - Morbid (severe) obesity due to excess calories, G47.33 - Obstructive sleep apnea (adult) (pediatric), I10 - Essential (primary) hypertension, K76.0 - Fatty (change of) liver, not elsewhere classified, R16.2 - Hepatomegaly with splenomegaly, not elsewhere classified, Z68.41 - Body mass index [BMI] 40.0- 44.9, adult, Z99.89 - Dependence on other enabling machines and devices Zinc Today E51.9 - Thiamine deficiency, unspecified, E66.01 - Morbid (severe) obesity due to excess calories, G47.33 - Obstructive sleep apnea (adult) (pediatric), I10 - Essential (primary) hypertension, K76.0 - Fatty (change of) liver, not elsewhere classified, R16.2 - Hepatomegaly with splenomegaly, not elsewhere classified, Z68.41 - Body mass index [BMI] 40.0-44.9, adult, Z99.89 - Dependence on other enabling machines and devices Prothrombin Time INR Today E51.9 - Thiamine deficiency, unspecified, E66.01 - Morbid (severe) obesity due to excess calories, G47.33 - Obstructive sleep apnea (adult) (pediatric), I10 - Essential (primary) hypertension, K76.0 - Fatty (change of) liver, not elsewhere classified, R16.2 - Hepatomegaly with splenomegaly, not elsewhere classified, Z68.41 - Body mass index [BMI] 40.0- 44.9, adult, Z99.89 - Dependence on other enabling machines and devices Partial Thromboplastin Time Today E51.9 - Thiamine deficiency, unspecified, E66.01 - Morbid (severe) obesity due to excess calories, G47.33 - Obstructive sleep apnea (adult) (pediatric), I10 - Essential (primary) hypertension, K76.0 - Fatty (change of) liver, not elsewhere classified, R16.2 - Hepatomegaly with splenomegaly, not elsewhere classified, Z68.41 - Body mass index [BMI] 40.0- 44.9, adult, Z99.89 - Dependence on other enabling machines and devices Complete Blood Count Auto Diff Today E51.9 - Thiamine deficiency, unspecified, E66.01 - Morbid (severe) obesity due to excess calories, G47.33 - Obstructive sleep apnea (adult) (pediatric), I10 - Essential (primary) hypertension, K76.0 - Fatty (change of) liver, not elsewhere classified, R16.2 - Hepatomegaly with splenomegaly, not elsewhere classified, Z68.41 - Body mass index [BMI] 40.0- 44.9, adult, Z99.89 - Dependence on other enabling machines and devices Medications: New polyethylene glycol 3350 (Miralax) Take 7 packets 2 days before surgery and 7 packets 1 day before surgery. Mix each packet with 8 oz's of water before surgery. 14 packets 0RF ondansetron HCl 4 mg PO Q6H PRN 20 tabs 0RF nausea and vomiting pantoprazole 40 mg PO QAM 30 days 30 tabs 2RF sucralfate 10 mL PO BID 30 days 600 mL 2RF acetaminophen 500 mg (15 mL) PO Q6H PRN 237 mL 2RF fever or pain Coding Level of Care Code Est Pt Level 4 (37804) Diagnoses Morbid obesity E66.01 HTN (hypertension) with goal to be determined I10 VAHE on CPAP G47.33; Z99.89 BMI 40.0-44.9, adult Z68.41 Hepatosplenomegaly R16.2 NAFLD (nonalcoholic fatty liver disease) K76.0 Vitamin B1 deficiency E51.9 Prolonged QT interval R94.31
[2023-07-24 15:28] VITALS: BP 132/73; PULSE 93; TEMP 36.7; O2SAT 98; BMI 42.5
== END 2023-07-24 16:15 | disposition home or self-care (01) ==
PROVIDERS: PCP Student in an Organized Health Care Education/Training Program; Visit Provider Surgery
DX: E66.01 Morbid (severe) obesity due to excess calories (principal); I10 Essential (primary) hypertension; G47.33 Obstructive sleep apnea (adult) (pediatric); Z99.89 Dependence on other enabling machines and devices; Z68.41 Body mass index [BMI] 40.0-44.9, adult; R16.2 Hepatomegaly with splenomegaly, not elsewhere classified; K76.0 Fatty (change of) liver, not elsewhere classified; E51.9 Thiamine deficiency, unspecified; R94.31 Abnormal electrocardiogram [ECG] [EKG]
CPT/HCPCS: 99214

== ENCOUNTER → 2023-07-24 15:10 | Outpatient (BNVA) | payer BC, SELFPAY | PROVIDERS: PCP Student in an Organized Health Care Education/Training Program; Visit Provider Surgery | DX: Z68.41 Body mass index [BMI] 40.0-44.9, adult (principal); R16.2 Hepatomegaly with splenomegaly, not elsewhere classified; K76.0 Fatty (change of) liver, not elsewhere classified; E51.9 Thiamine deficiency, unspecified; G47.33 Obstructive sleep apnea (adult) (pediatric); Z99.89 Dependence on other enabling machines and devices; I10 Essential (primary) hypertension; E66.01 Morbid (severe) obesity due to excess calories ==

== ENCOUNTER 2023-07-28 07:29 | Outpatient (REF) | payer BC, SELFPAY ==
[2023-07-28 08:11] LABS: MANUAL DIFF FLAG NO
[2023-07-28 08:18] LABS: Basophils Percent Auto 0.5 % (0-2); Eosinophils Absolute Auto 0.1 X10*3/uL (0.0-0.4); Eosinophils Percent Auto 0.9 % (0-4); Hematocrit 40.1 % (37.0-47.0); Hemoglobin 13.5 g/dl (12.0-16.0); Imm Gran Abs Auto 0.02 X10*3/uL (0.00-0.03); Imm Gran Pct Auto 0.2 % (0.0-0.4); Lymphocytes Absolute Auto 1.8 X10*3/uL (1.2-4.9); Lymphocytes Percent Auto 21.1 % (20-40); Mean Corpuscular HGB Conc 33.7 g/dl (31.0-35.0); Mean Corpuscular Hemoglobin 29.1 pg (27.0-33.0); Mean Corpuscular Volume 86.4 fL (80.0-98.0); Mean Platelet Volume 9.2 fL (9.4-12.3); Monocytes Absolute Auto 0.6 X10*3/uL (0.1-1.2); Monocytes Percent Auto 7.4 % (2-11); Neutrophils Percent Auto 69.9 % (45-73); Platelet Count 296 X10*3/uL (160-400); Red Blood Count 4.64 X10*6/uL (4.20-5.50); Red Cell Distribution Width 12.1 % (11.0-16.0); White Blood Count 8.6 X10*3/uL (4.8-10.8)
[2023-07-28 08:23] LABS: INTERNATIONAL NORM RATIO 1.1 (0.9-1.1); Prothrombin Time 13.5 SEC (11.1-13.3)
[2023-07-28 08:26] LABS: Partial Thromboplastin Time 37.2 SEC (26.0-36.4)
[2023-07-28 08:37] LABS: Estimated Average Glucose 105 mg/dL; Hemoglobin A1c % 5.3 % (<6.0)
[2023-07-28 08:56] LABS: Alanine Aminotransferase 11 U/L (0-31); Albumin Level 4.5 g/dL (3.5-5.0); Alkaline Phosphatase 60 U/L (39-117); Anion Gap 13 (12-20); Aspartate Amino Transferase 16 U/L (5-31); Bilirubin Total 0.4 mg/dL (0.0-1.0); Blood Urea Nitrogen 15 mg/dL (9-16); C Reactive Protein 1.07 mg/dL (< or = 0.50); Carbon Dioxide 24 mmol/L (22-29); Chloride 106 mmol/L (96-108); Cholesterol 167 mg/dL (<200); Estimated Glomerular Filt Rate > 60; Glucose Random 103 mg/dL (60-115); HDL Cholesterol 32 mg/dL (>40); Iron 62 mcg/dL (30-160); LDL Cholesterol Calculated 119 mg/dL (<100); Percent Iron Saturation 21 % (15-50); Potassium 3.8 mmol/L (3.3-5.1); Sodium 139 mmol/L (135-145); Total Iron Binding Capacity 289 mcg/dL (228-428); Total Protein 7.8 g/dL (6.5-8.0); Triglycerides 80 mg/dL (<150); Unsaturated Iron Binding 227 ug/dL
[2023-07-28 09:13] LABS: Vitamin B12 631 pg/mL (200-900)
[2023-07-28 09:14] LABS: Ferritin 155 ng/mL (10-250); TSH reflex Free T4 0.85 uIU/mL (0.32-4.0); Vitamin D 25-OH Total 59.1 ng/mL (>30)
[2023-07-31 17:09] LABS: Calcium (PTHI) 9.4 mg/dL (8.6-10.2); PTHI 38 pg/mL (16-77)
[2023-08-01 06:10] LABS: Zinc 116 mcg/dL (60-130)
[2023-08-02 02:19] LABS: Vitamin A 34 mcg/dL (38-98)
[2023-08-03 07:48] LABS: Vitamin B1 21 nmol/L (8-30)
== END 2023-07-28 07:30 | disposition home or self-care (01) ==
LOC: HO.LAB 07:29
PROVIDERS: Visit Provider Surgery
DX: R16.2 Hepatomegaly with splenomegaly, not elsewhere classified (principal); K76.0 Fatty (change of) liver, not elsewhere classified; E51.9 Thiamine deficiency, unspecified; I10 Essential (primary) hypertension; E66.01 Morbid (severe) obesity due to excess calories; Z68.41 Body mass index [BMI] 40.0-44.9, adult; G47.33 Obstructive sleep apnea (adult) (pediatric); Z99.89 Dependence on other enabling machines and devices
CPT/HCPCS: 36415; 80053; 80061; 82306; 82607; 82728; 83036; 83540; 83970; 84425; 84443; 84590; 84630; 85025; 85610; 85730; 86140

== ENCOUNTER 2023-08-01 11:13 | Inpatient (IN) | payer BC, SELFPAY ==
[2023-07-24 14:34] VITALS: BMI 42.7
--- NOTE | 2023-07-31 10:03 | P.CONAN_ITS ---
Documented by User: Alpa Lock NP 07/31/23 10:09 HPI - Anesthesia Eval Consult details Narrative: 43yo F for Gastrectomy Sleeve - EGD, possible diaphragmatic hernia, possible ventral hernia, possible open Cardiac cleared for surgery. Had w/u for long QT on EKG. Possibly genetic component and cardio will w/u in future. For now, avoid QT prolonging meds. [facility] Active Problems Active Problems: All Active Problems (Updated 07/24/23 @ 14:24 by Char Dumont RN) Morbid obesity (Acute) HTN (hypertension) with goal to be determined (Acute) VAHE on CPAP (Acute) Pre-op evaluation (Acute) Adjustment disorder, unspecified (Acute) Abnormal ECG (Acute) BMI 40.0-44.9, adult (Acute) Hepatosplenomegaly (Acute) NAFLD (nonalcoholic fatty liver disease) (Acute) Vitamin B1 deficiency (Acute) Pre-operative cardiovascular examination (Acute) Prolonged QT interval (Acute) Past Medical History Medical History Sleep apnea Hx of hiatal hernia HTN (hypertension) Family History Family History Mother Hypertension Father Hypertension Brother No problems noted. Daughter No problems noted. Daughter No problems noted. Surgical History Surgical History Hx of adenoidectomy Hx of tonsillectomy Social History Social History Are you a primary care administrative tech to a significant other at home: No Do you presently have visiting nurse or other home services: No Alcohol intake: current Alcohol intake frequency: does not drink Patient Tobacco Use Status: Never used Tobacco Use of substances other than those prescribed or required for medical reasons: No Have you been hit, kicked, punched, or otherwise hurt by someone within the past year? If so, by whom?: No Advance Directives: No Advance Directives Information Provided: Yes Advance Directives on File: No Recently lost weight without trying: No Eating poorly because of decreased appetite: No Nutrition Risks: No Nutritional Risk Patient : No : No Poor oral hygiene: No Meds Allergies Allergy/AdvReac Type Severity Reaction Status Date / Time No Known Allergies Allergy Verified 08/01/23 07:10 Home Medications Medication Instructions Recorded Confirmed Last Taken Type CPAP (CPAP Machine/Device) 04/03/23 07/17/23 Unknown History amlodipine 5 mg tablet 5 mg PO DAILY 04/03/23 07/24/23 08/01/23 History valsartan 160 mg tablet 160 mg PO DAILY 04/03/23 07/24/23 Unknown History Ca 600 mg-D3 20 mcg-mag oxide 50 1 tab PO DAILY 07/24/23 07/24/23 Unknown History gq-Lf-ungpxe-manganese-boron tablet (Calcium 600-D3 Plus (mag-zinc)) multivitamin 1 tab PO DAILY 07/24/23 07/24/23 Unknown History Exam Exam Date and Time: July 31, 2023 1003 Height,Weight and Vital Signs: Height 5 ft 8 in Weight 127.459 kg Pertinent Lab Results Pertinent Lab Results: Laboratory Tests 07/28/23 07:55 Blood Type A Positive Antibody Screen NEGATIVE Laboratory Tests 07/28/23 08:10 WBC 8.6 Hgb 13.5 Hct 40.1 Plt Count 296 Sodium 139 Potassium 3.8 Chloride 106 Carbon Dioxide 24 BUN 15 Creatinine 0.74 Narrative Narrative: EKG 06/2023 sinus rhythm at 69/Min; no significant ST-T changes; normal NE; corrected QT prolonged to 492 milliseconds ECHO 06/2023 Conclusions: - The left ventricular systolic function is normal. The calculated ejection fraction is 65% by biplane method. - No obvious valvular pathology seen on this study. - Small plaque is seen in the sino tubular ridge. NM cardiolite stress test 06/2023 Impression: 1. Myocardial perfusion imaging study shows nondiagnostic study 2. Gated LVEF is 42% I gated imaging but may be erroneous due to bowel findings. Consider echocardiogram 3. Transient ischemic dilatation not evaluated EKG is nondiagnostic for ischemia Assessment and Plan Assessment Anesthesia Assessment: Chart Reviewed Documented by User: Priya Duarte MD 08/01/23 07:59 [facility] Past Medical History Medical History Sleep apnea Hx of hiatal hernia HTN (hypertension) Family History Family History Mother Hypertension Father Hypertension Brother No problems noted. Daughter No problems noted. Daughter No problems noted. Family history of problems with anesthesia: No Surgical History Surgical History Hx of adenoidectomy Hx of tonsillectomy History of Problems with Anesthesia: No Social History Social History Are you a primary care administrative tech to a significant other at home: No Do you presently have visiting nurse or other home services: No Alcohol intake: current Alcohol intake frequency: does not drink Patient Tobacco Use Status: Never used Tobacco Use of substances other than those prescribed or required for medical reasons: No Have you been hit, kicked, punched, or otherwise hurt by someone within the past year? If so, by whom?: No Advance Directives: No Advance Directives Information Provided: Yes Advance Directives on File: No Recently lost weight without trying: No Eating poorly because of decreased appetite: No Nutrition Risks: No Nutritional Risk Patient : No : No Poor oral hygiene: No Meds Allergies Allergy/AdvReac Type Severity Reaction Status Date / Time No Known Allergies Allergy Verified 08/01/23 07:10 Home Medications Medication Instructions Recorded Confirmed Last Taken Type CPAP (CPAP Machine/Device) 04/03/23 07/17/23 Unknown History amlodipine 5 mg tablet 5 mg PO DAILY 04/03/23 07/24/23 08/01/23 History valsartan 160 mg tablet 160 mg PO DAILY 04/03/23 07/24/23 Unknown History Ca 600 mg-D3 20 mcg-mag oxide 50 1 tab PO DAILY 07/24/23 07/24/23 Unknown History xa-Gc-mnlymn-manganese-boron tablet (Calcium 600-D3 Plus (mag-zinc)) multivitamin 1 tab PO DAILY 09/05/23 09/05/23 Unknown History Exam Airway Mallampati Class: II TM Dist: >3cm Neck ROM: Full Heart: rrr Lungs: cta Assessment and Plan Assessment Anesthesia Assessment: Anesthesia Plan Discussed Final Anesthetic Review Family History of Problems with Anesthesia: No History of Problems with Anesthesia: No NPO: Yes ASA Class: III Final Preanesthetic Review: No Changes in Pt Med Stat, Meds/Allgs Chart Reviewed, Consent Obtained/Reviewed and Anes Risks/Benef Reviewed Patient Risk: Intermediate Procedure Risk: Intermediate Anesthetic Plan Anesthetic Plan: GA Disposition: Standard PACU
--- NOTE | 2023-07-31 14:53 | P.OP_ITS ---
Operative Note Operative Note Date of Service: 08/01/23 Narrative: Preop diagnosis: [Obesity, class 3, hypertension, NAFLD and obstructive sleep apnea, hiatal hernia] Postop diagnosis: [Same, no evidence of hiatal hernia, NAFLD and hepatomegaly] Procedure: [Laparoscopic sleeve gastrectomy, gastropexy, intraoperative upper endoscopy] Surgeon: Ben Rhodes MD Assist: [Juan Luis Reyna PA-C] Anesthesia: [GET, local: Marciane, 0.5% with epi] Estimated blood loss: [3cc] Specimen: [Portion of stomach with fundus] Intraoperative findings: [Dissection of the esophageal fat pad and exploration of the left crux demonstrated no evidence of a hiatal hernia, NAFLD and hepatomegaly was appreciated, grossly normal stomach, anterior spleen] Indications: [The patient is a 43-year-old woman with a lifelong struggle with obesity and the obesity-related comorbidities of hypertension and obstructive sleep apnea. She entered the surgical weight loss program on 04/24/2023 at a weight of 339.8/BMI 51.7. Following Education and demonstration of healthy lifestyle changes including diet and increased activity/exercise, the patient wanted to proceed with laparoscopic sleeve gastrectomy, possible hiatal hernia repair, intraoperative upper endoscopy and possible ventral hernia repair. The option of ongoing medical management was offered and declined, as was a 2nd opinion. I reviewed the inherent risks of this procedure which include, but are not limited to: Bleeding that could require another operation or blood transfusion; the inherent risks of transfusion reaction infectious disease from blood transfusions; the risk of staple line leaks that could cause sepsis, multi-system organ failure and ; the risk of mesenteric or deep vein thrombosis of the lower extremities that could cause a fatal pulmonary embolism was reviewed; the risk of GERD that could require conversion to gastric bypass was discussed; the risk of recurrent hiatal hernia, especially in the setting of weight regain was reviewed. The risk of weight regain if maladaptive eating and sedentary behavior continue was discussed. The importance of proper diet and increased activity to augment surgical weight loss and the fact that no operation would result in weight loss of poor dietary decisions and sedentary behavior are resumed were discussed at length and apparently understood. The patient had the option of having a type copy examiner present and declined this option.] Procedure: [The patient was identified in the preoperative holding area by myself and again in the operating suite 6 by myself and the team. Patient was placed supine on the operating table. Safety straps were utilized and a shantell tboard utilized. The patient was induced in general endotracheal anesthesia administered with excellent effect. An appropriate time-out was performed. The patient's abdomen was then widely prepped and draped in the usual manner for surgery using Chlorprep. Antibiotics per protocol were administered by Anesthesia. The pt voided her bladder seasonal greenery bundler to surgery. SCDs were utilized. After infiltrating preemptive local in the skin and subcutaneous tissues in the left subcostal space, a stab incision was made sharply and the Veress needle inserted without incident. Appropriate drop test was performed then a pneumoperitoneum of 15 mmHg was obtained using carbon dioxide. Opening pressures were 8 mm Hg. Preemptive local was used at all trocar insertion sites and I began in the epigastric midline 10 cm from the xiphoid. A transverse incision was made. Next, a 5 mm 0 degree scope over a 5 mm Optiview trocar was used to access the abdomen in the in the midline of the epigastrium appr oximately 10 cm from the xiphoid. Upon entering, the obturator was removed and the abdomen explored. There was CO2 gas bubbles in the omentum and this was tracked and explored with no evidence of injury from the Veress needle in it was removed. The bowel and deep structures were examined for injury from the trocar and none identified. The scope was then switched to a 5 mm 45 degree scope. Next, using preemptive local, additional 5 mm trocars were placed under direct laparoscopic vision and the 5 mm midline trocar upsized to a 12 mm to accommodate the stapler. The patient was then positioned in reverse Trendelenburg and the liver retractor deployed through the right lateral 5 mm trocar and secured. An hiatal hernia was demonstrated once the liver retractor was positioned. The stomach was already decompressed, but the 40 Vietnamese ViSiGi was inserted to the GE junction by the anesthesiologist without difficulty. Dissection was begun along the greater curvature using the 5 mm [place] LigaSure for hemostasis. Dissection was then carried towards the pylorus to 3-4 cm from the pylorus and retro gastric adhesions lysed. The gastroesophageal fat pad was carefully mobilized taking care to avoid injury to the esophagus and stomach and dissection carried towards the short gastrics taking care to avoid injury to the spleen and splenic artery. Dissection was carried from the left manjula of the diaphragm posteriorly. Next, the phrenoesophogeal fat pad was dissected laterally to anteromedially to the hiatus and left lateral border of the hiatus to demonstrate the esophagus with no evidence of a hiatal hernia present. Next, the 40 Vietnamese ViSiGi bougie was advanced by anesthesiologist under direct vision and laparoscopic guidance and positioned in the antrum using laparoscopic graspers to serve as a guide for a stapled sleeve gastrectomy starting approximately 3cm from the pylorus. Stapling was performed with Localsensor power stapler Endo-HAMMAD stapler with a purple 45 and purple 60 loads as needed to keep the sleeve morphology uniform. The 10 mm clip laundry laborer was used to apply additional clips to the staple line. Care was taken to be sure that the sleeve laid flat and was without stricture. Once the sleeve was complete, the portion of stomach was placed in the lower abdomen to be sent for permanent section. The staple line, gastrocolic omentum, spleen and short gastric areas were all inspected for hemostasis which was found to be good. The bougie was then removed. After inspecting again for hemostasis, a gastropexy was performed using 2-0 Polysorb suture to secure the sleeve gastrectomy to the gastrocolic omentum with intracorporeal suture technique. Next, I broke scrub perform an on-table upper endoscopy to assess the sleeve and the esophagus and stomach. The patient was returned to neutral position and the Olympus 160 gastroscope was advanced taking care to preserve the endotracheal tube. The esophagus was intubated without incident. Minimal air was insufflated and the scope advanced into the newly formed sleeve. The staple line was inspected for hemostasis and the morphology of the sleeve appeared straight with a uniform diameter. Intraoperatively, there was no evidence of staple line leak as my records management assistant instilled sterile saline into the operative field via endoscope. The scope was then used to aspirate the air from the sleeve withdrawn and removed. I then rescrubbed to return to the operative field and again inspected the field for hemostasis. The patient was again placed in reverse Trendelenburg. After final assessment for hemostasis, the patient was returned to neutral position, a Gabriel used to withdraw the stomach which was sent for permanent section. The fascia of the 12 mm midline was closed using an 0 Polysorb figure of 8 on a suture passer under direct laparoscopic vision. The abdomen was then deflated and all trocars removed. The suture was then tied and the skin closed with 4-0 Monocryl subcuticular sutures. The abdomen was then washed and dried, benzoin and Steri-Strips, 2x2s & Tegaderms. The patient tolerated the procedure well was then extubated and sent to PACU in stable condition. All sponge needle and instrument counts were correct x2. At the patient's request, I spoke with her Esteban in the waiting area to apprise him of the operation and findings. His questions seemed to be satisfactorily answered & he provided his cellphone [phone].]
--- NOTE | 2023-07-31 14:53 | MHC.SHP ---
Pre-Procedural Eval Section A Date of Service: 08/01/23 The patient is an INPATIENT: Yes The History & Physical has been completed within 30 days and I have reviewed it.: Yes Section B Chief Complaint: Morbid (severe) obesity due to excess calories Allergies: Allergies Allergy/AdvReac Type Severity Reaction Status Date / Time No Known Allergies Allergy Verified 07/20/23 08:59 Plan I have reviewed the history and physical and performed a pertinent physical examination on my patient. No changes have occurred unless specified. Time Spent With Patient Time: Total time managing care of this patient today ____ minutes.
[2023-08-01] VITALS (16 sets, daily range): BP systolic 123–150; BP diastolic 63–86; PULSE 48–69; RESP 15–18; TEMP 35.7–36.7; O2SAT 95–98
[2023-08-01 06:39] LABS: UPreg QC Valid YES; Urine Pregnancy NEGATIVE (NEGATIVE)
[2023-08-01] MEDS: Lactated Ringers 1,000 ML 150 ML IVCONT (06:54)
[2023-08-01] MEDS: Aprepitant 32 MG/4.4 ML VIAL IVPUSH (07:49)
--- NOTE | 2023-08-01 08:30 | PC.NURSE ---
dr. wilks aware that ancef 3 gm was not mixed by pharmacy. pulled ancef 2 gm and mixed ancef 1 gm. preop. okay to proceed.
[2023-08-01] MEDS: ceFAZolin Sodium 3 GM in 0.9 % Sodium Chloride 100 ML IV (08:42)
[2023-08-01] MEDS: Acetaminophen 1,000 MG/100 ML PIGGYBACK 400 MG IV (10:30)
--- NOTE | 2023-08-01 11:17 | P.DS_ITS ---
DS: Providers Provider Date of Service: 08/02/23 Primary care physician: Rossy Doran PA-C DS: Summary Hospital Course Hospital Course: ADMITTING DIAGNOSIS: morbid obesity, HTN, VAHE ? DISCHARGE DIAGNOSIS: same, s/p laparoscopic sleeve gastrectomy ? PAST SURGICAL HISTORY: tonsillectomy, adenoidectomy ? PROCEDURE: upper endoscopy, laparoscopic sleeve gastrectomy ? DISCHARGE SUMMARY: ? History of Present Illness: ? The patient is a?43 year-old woman with a BMI of?51.7 kg/m2 and associated co- morbidities as described above. The patient had extensive work-up,lost?59.6 lbs preoperatively and was electively scheduled for laparoscopic, possible open sleeve gastrectomy and gastropexy. Risks and complications of the surgery were discussed with the patient in advance, particularly the possibility of , pulmonary embolism, anastomotic leak, bleeding, bowel injury, GERD, cardiac, renal or pulmonary complications. The patient understood all the risks and was in agreement with the surgical plan. ? Hospital Course: ? The patient underwent an uneventful laparoscopic sleeve gastrectomy with gastropexy on the day of admission. Postoperatively, the patient was transferred to the surgical floor. The patient received IV Acetaminophen and IV dilaudid for pain control. Patient was started on bariatric phase 1 diet POD #0. On postoperative day one, the patient was feeling well without nausea, vomiting, fevers, or tachycardia. The patient had some mild incisional pain and the abdomen was soft. ? On the morning of postoperative day one, the patient was continued on 1 ounce of water or ice every half hour. During the day, the patient did fairly well, having some incisional pain, but able to ambulate adequately and to tolerate liquids well. ? Since the patient is doing well, we decided that the patient was ready to be discharged. The patient was given instructions to follow-up with me next week and to call my office for any fever over 101, persistent abdominal pain, nausea, vomiting, GERD, symptoms of DVT such as calf tenderness, or leg swelling, or pulmonary embolism such as chest pain or shortness of breath. The patient was also instructed to drink 40-60 ounces of liquids per day using the 1-ounce cups. The patient had been given prescriptions for Tylenol for pain, Zofran prn for nausea, and pantoprazole and carafate previously. The patient was encouraged to ambulate and use the incentive spirometer. The patient was allowed to shower, but no baths, and encouraged to stay active at home. All of these instructions were given to the patient personally. All questions were answered and the patient understood all instructions, the instructions were also given to the patient in print. Time Spent with Patient Time attestation: Total time managing care of this patient today ____ minutes. Discharge coordination time: Less than 30 minutes Quality: Safe Use of Opioids Does Pt have an Active Cancer Diagnosis on the Problem List?: No Quality: Stroke Does the patient have a stroke diagnosis?: No Physical Exam Vital Signs: Vital Signs: Last Vital Signs Temp 98.1 F 08/01/23 07:09 Pulse 66 08/01/23 07:09 Resp 18 08/01/23 07:09 BP 143/79 H 08/01/23 07:09 Pulse Ox 97 08/01/23 07:09 O2 Del Method Room Air 08/01/23 07:09 BMI result Body Mass Index 42.7 DS: Data Data Completed and Pending Pending studies at discharge: Pending at discharge 08/01/23 10:31 Surgical [PTH] Routine Labs on day of discharge: Laboratory Results - last 24 hr 08/01/23 06:30 Urine Test NEGATIVE Discharge Plan Discharge Anticipated Discharge Date/Time: 08/02/23 07:34 Patient Disposition: Home, Self-Care Discharge Diagnosis: s/p laparoscopic sleeve gastrectomy Referrals: Rossy Doran PA-C [Primary Care Provider] - 1 Week Ben Rhodes MD [Physician] - 1 Week Discharge Medications: Continued amlodipine 5 mg tablet 5 mg PO DAILY valsartan 160 mg tablet 160 mg PO DAILY (DME) CPAP Machine/Device Device See Rx Instructions .Route Rx Instructions: As directed ondansetron HCl 4 mg tablet 4 mg PO Q6H PRN (Reason: nausea and vomiting) Qty: 20 0RF sucralfate 100 mg/mL suspension 10 ml PO BID 30 Days Qty: 600 2RF omeprazole 20 mg capsule,delayed release(DR/EC) 40 mg PO DAILY 56 Days Qty: 112 2RF Discontinued thiamine HCl (vitamin B1) 50 mg tablet 50 mg PO DAILY Qty: 30 5RF Ca-D3-mag [id number]-bor [Calcium 600-D3 Plus (mag-zinc)] 600 mg calcium- 20 mcg-50 mg Tablet 1 tab PO DAILY multivitamin Tablet 1 tab PO DAILY polyethylene glycol 3350 [Miralax] 17 gram powder in packet See Rx Instructions PO DAILY Qty: 14 0RF Rx Instructions: Take 7 packets 2 days before surgery and 7 packets 1 day before surgery. Mix each packet with 8 oz's of water before surgery. Discharge Orders: Discharge Order (Routine); Ordered 08/02/23 Ordered By: Ben Rhodes Diet: Bariatric shakes as plan Activity on Discharge: No heavy lifting Activity Restrictions/Additional Instructions: No tub baths, sex or returning to work until discussed at first post op appointment. No exercise, alcohol, tobacco or illegal drug use. Continue to use incentive spirometer hourly while awake. Walk in home for 5- 10 minutes every 2 hours during the first week. Follow all instructions in the bariatric handbook and call with any questions.Discharge Instructions 1. Please call your doctor or come back to the emergency room should any new symptoms arise. 2. You will receive a courtesy call from [facility] 24-48 hours after discharge. 3. Activity: abstain from alcohol, practice limited stair climbing, no bending, no driving, no exercise, no illicit substances, no lifting, no sex, no tub bath, no work. 4. Diet: continue as discussed with Dr. Rhodes. 5. Dressing Change/Wound Care: Your incision is covered by clear bandages and guaze underneath. If the area is tender, you may apply an ice pack for short intervals (no more than 20 minutes on, followed by at least 20 minutes off). Do not apply heat. Do not use creams, lotions, or topical antibiotics unless instructed to do so by your surgeon. These can cause infection or allergic reaction. 6. Call your doctor if: - Your temperature exceeds 101.5 F - You experience excessive pain or swelling - You have an unexpected reaction to medication - You have excessive bleeding - You experience continued vomiting/nausea - Your incision begins to separate - Your incision shows signs of infection such as increased redness, swelling, excessive pain, heat, or drainage (light blood or clear fluid is normal) 7. General instructions: No lifting greater than 5 lbs for 1 week and not more than 20lbs the next 3?weeks. No driving until seen at the office in 5-7 days after surgery. If you do not move your bowels in the next 2 days, please tell?Dr. Rhodes. Please walk around your home every hour or two to prevent blood clots from forming in your legs. You do not need to wake from sleeping to walk. Please sleep in a bed or couch to prevent kinking at the hips and knees. Please take your incentive spirometer (your lung assembly detailer) home with you and use it for the next few days to prevent pneumonia. You may shower, no hot tubs, baths or swimming pools.?Please follow the post op diet instructions you are?given by Dr Silvio nava? and text me daily at 5-6pm for an update.?If you have any issues or concerns or questions please communicate this to him via text.? The Celebrate shakes have all of the bariatric vitamins you need if you consume these shakes. If you are drinking other protein shakes, you will need to purchase the Celebrate multivitamins and calcium that are available in the hospital gift shop on the first floor of the [facility].??Do not take anything without first discussing with Dr Rhodes. Please make sure you are consuming at least 40 ounces of fluids per day starting the?day AFTER your discharge from the hospital. Always drink 1-2 ml per minute using the 5ml?syringe. If you drink faster you may experience?bloating,?gas pain, burping, nausea or heartburn. In that case please slow down your pace and use the syringe to?understand better the?proper?pace and volume of drinking. Do not hesitate to contact the office with any questions at . The patient's medical history has been reviewed and they are considered low risk for post op DVT and therefore DVT prophylaxis is not considered necessary. Travel after surgery was reviewed. The patient has not disclosed any travel plans during the first 30 days after surgery and they have been advised that within the first 30 days after surgery any bus, plane, train or car travel over 2 hours in duration is contraindicated due to the possibility of developing blood clots from immobility. Any travel, needs to include periods of ambulation of 10 minutes in duration every 2 hours.? The patient was instructed to discuss any plans for travel during this period with their bariatric surgeon. Care Plan Goals: Postoperative hydration, diet and activity/walking Health Concerns: Postoperative hydration, diet and activity/walking Plan of Treatment: Postoperative hydration, bariatric diet and activity/walking Assessment: obesity, s/p LSG Discharge Date/Time: 08/02/23 09:15
[2023-08-01 11:40] LABS: Hematocrit 38.9 % (37.0-47.0); Hemoglobin 12.7 g/dl (12.0-16.0)
[2023-08-01 11:51] LABS: Anion Gap 14 (12-20); Blood Urea Nitrogen 12 mg/dL (9-16); Calcium 8.9 mg/dL (8.4-10.2); Carbon Dioxide 21 mmol/L (22-29); Chloride 107 mmol/L (96-108); Creatinine Clr Calc Pharmacy 139.6; Estimated Glomerular Filt Rate > 60; Glucose Random 166 mg/dL (60-115); Potassium 3.7 mmol/L (3.3-5.1); Sodium 138 mmol/L (135-145)
--- NOTE | 2023-08-01 12:02 | PM.PNGS ---
Subjective Subjective Date of Service: 08/01/23 Interval history: The patient is seen in PACU. Her , Baljit, was apprise by telephone at [phone] that she is doing fine and we are just waiting on a bed. Patient denies any significant pain, nausea or vomiting. She is somewhat somnolent and her pulses in the 50-60 range Physical Exam Vital Signs: Vital Signs: Last Vital Signs Temp 97.2 F 08/01/23 11:20 Pulse 52 08/01/23 11:35 Resp 16 08/01/23 11:35 BP 137/70 08/01/23 11:35 Pulse Ox 95 08/01/23 11:35 O2 Del Method Nasal Cannula 08/01/23 11:35 O2 Flow Rate 3 08/01/23 11:35 BMI result Body Mass Index 42.7 On exam, she is comfortable and nontoxic She is in no acute respiratory distress Abd Binder is in place Objective Data Active Medications Amlodipine Besylate (Amlodipine Besylate 5 Mg Tablet) 5 mg PO DAILY LORI; Protocol Hydromorphone HCl (Hydromorphone Hcl 0.5 Mg/0.5 Ml Syringe) 0.25 mg IVPUSH Q5M PRN; Protocol PRN Reason: Pain, Severe (Pain Scale 7-10) Lactated Ringer's (Lr) 1,000 mls @ 150 mls/hr IVCONT .Q6H40M LORI Last Admin: 08/01/23 06:54 Dose: 150 mls/hr Documented By: KUN Oxycodone HCl (Oxycodone Hcl Immed Release 5 Mg Tablet) 5 mg PO ONCE PRN PRN Reason: Pain, Severe (Pain Scale 7-10) Valsartan (Valsartan 160 Mg Tablet) 160 mg PO DAILY [facility]; Protocol Labs 08/01/23 11:28 08/01/23 11:28 Labs: Laboratory Results - last 24 hr 08/01/23 08/01/23 06:30 11:28 Anion Gap 14 Estim Creat Clear Calc 139.6 Estimated GFR > 60 Random Glucose 166 H Calcium 8.9 D Urine Test NEGATIVE Procedures Date of Service Date of Service: 08/01/23 Progress Note: A&P Assessment and plan (1) S/P laparoscopic sleeve gastrectomy: Status: Acute (2) Morbid obesity: Status: Acute (3) HTN (hypertension) with goal to be determined: Status: Acute (4) VAHE on CPAP: Status: Acute (5) NAFLD (nonalcoholic fatty liver disease): Status: Acute (6) BMI 40.0-44.9, adult: Status: Acute (7) Hepatosplenomegaly: Status: Acute Plan Labs noted Await bed Trend Vitals, exam & labs Start sips H2O OOB/ambulate when more awake. Time Spent With Patient Time: Total time managing care of this patient today ____ minutes. Quality Stroke Does the patient have a stroke diagnosis?: No VTE Prior VTE?: No VTE Risk Level:: Surgical - moderate VTE Device Contraindication: N/A - Device Ordered VTE Drug Contraindication: Treatment Not Indicated
--- NOTE | 2023-08-01 12:51 | PHA.MEDREC ---
Pharmacy Consult ? Medication Reconciliation Pharmacy has reviewed the medication reconciliation completed by nursing.
[2023-08-01] MEDS: Lactated Ringers 1,000 ML 100 ML IVCONT ×2 (14:19→23:35)
[2023-08-01] MEDS: ceFAZolin Sodium/Dextrose,Iso 2 GM/50 ML PIGGYBACK IV (14:19)
[2023-08-01] MEDS: Acetaminophen 1,000 MG/100 ML PIGGYBACK 16.7 MG IV ×2 (15:10→20:08)
[2023-08-01] MEDS: ondansetron HCL 4 MG/2 ML VIAL IVPUSH (17:34)
[2023-08-01] MEDS: Famotidine/PF 20 MG/2 ML VIAL IVPUSH (20:08)
[2023-08-01] MEDS: 0.9 % Sodium Chloride Flush 3 ML SYRINGE IVFLUSH (20:08)
[2023-08-02] MEDS: Acetaminophen 1,000 MG/100 ML PIGGYBACK 16.7 MG IV (02:09)
[2023-08-02] MEDS: ondansetron HCL 4 MG/2 ML VIAL IVPUSH (02:10)
[2023-08-02 03:50] VITALS: BP 133/69; PULSE 76; RESP 18; TEMP 36.2; O2SAT 96
[2023-08-02 06:32] LABS: MANUAL DIFF FLAG NO
[2023-08-02 06:44] LABS: Basophils Percent Auto 0.1 % (0-2); Hematocrit 37.6 % (37.0-47.0); Hemoglobin 12.4 g/dl (12.0-16.0); Imm Gran Abs Auto 0.07 X10*3/uL (0.00-0.03); Imm Gran Pct Auto 0.4 % (0.0-0.4); Lymphocytes Absolute Auto 1.4 X10*3/uL (1.2-4.9); Mean Corpuscular Hemoglobin 28.7 pg (27.0-33.0); Monocytes Absolute Auto 1.1 X10*3/uL (0.1-1.2); Monocytes Percent Auto 7.1 % (2-11); Neutrophils Absolute Auto 13.2 x10*3/uL (2.0-8.3); Neutrophils Percent Auto 83.4 % (45-73); Platelet Count 318 X10*3/uL (160-400); Red Blood Count 4.32 X10*6/uL (4.20-5.50); Red Cell Distribution Width 12.1 % (11.0-16.0); White Blood Count 15.8 X10*3/uL (4.8-10.8)
[2023-08-02 06:59] LABS: Anion Gap 14 (12-20); Blood Urea Nitrogen 7 mg/dL (9-16); Calcium 8.9 mg/dL (8.4-10.2); Carbon Dioxide 23 mmol/L (22-29); Chloride 105 mmol/L (96-108); Estimated Glomerular Filt Rate > 60; Glucose Random 102 mg/dL (60-115); Potassium 3.7 mmol/L (3.3-5.1); Sodium 138 mmol/L (135-145)
--- NOTE | 2023-08-02 07:14 | PM.PNGS ---
Subjective Subjective Date of Service: 08/02/23 Patient reports: no new complaints, feels better and tolerating liquids well Interval history: The patient denies any significant chest or abdominal pain. Reports no nausea or vomiting. She is meeting hydration goals and denies any chest pain, difficulty breathing, shortness of breath, GERD, regurgitation, odynophagia or other complaints. She has been out of bed to the bathroom without difficulty. We reviewed her postoperative diet instructions which were provided before surgery. Her questions seemed to be satisfactorily answered and she will begin the celebrate 4 in 1 protein shakes tomorrow. Physical Exam Vital Signs: Vital Signs: Last Vital Signs Temp 97.2 F 08/02/23 03:50 Pulse 76 08/02/23 03:50 Resp 18 08/02/23 03:50 BP 133/69 08/02/23 03:50 Pulse Ox 96 08/02/23 03:50 O2 Del Method Room Air 08/02/23 06:31 O2 Flow Rate 2.0 08/01/23 15:32 BMI result Body Mass Index 42.7 On exam, she is nontoxic and in good spirits She is in no acute respiratory distress Her abdominal binder is in place with appropriate incisional discomfort and no peritoneal sign Objective Data Active Medications Amlodipine Besylate (Amlodipine Besylate 5 Mg Tablet) 5 mg PO DAILY [facility]; Protocol Famotidine (Famotidine/Pf 20 Mg/2 Ml Vial) 20 mg IVPUSH BID [facility] Last Admin: 08/01/23 20:08 Dose: 20 mg Documented By: MIKAYLAQC Hydromorphone HCl (Hydromorphone Hcl 0.5 Mg/0.5 Ml Syringe) 0.25 mg IVPUSH Q5M PRN; Protocol PRN Reason: Pain, Severe (Pain Scale 7-10) Hydromorphone HCl (Hydromorphone Hcl 0.5 Mg/0.5 Ml Syringe) 0.25 mg IVPUSH Q4H PRN; Protocol PRN Reason: Pain, Moderate(Pain Scale 4-6) Lactated Ringer's (Lr) 1,000 mls @ 100 mls/hr IVCONT .Q10H [facility] Last Admin: 08/01/23 23:35 Dose: 100 mls/hr Documented By: MIKAYLAQC Acetaminophen (Ofirmev) 1,000 mg in 100 mls @ 16.7 mls/hr IV .Q6H [facility] Last Admin: 08/02/23 02:09 Dose: 16.7 mls/hr Documented By: RAVINDRA Metoclopramide HCl (Metoclopramide Hcl 10 Mg/2 Ml Vial) 10 mg IVPUSH Q6H PRN PRN Reason: Nausea Ondansetron HCl (Ondansetron Hcl 4 Mg/2 Ml Vial) 4 mg IVPUSH Q8H [facility] Last Admin: 08/02/23 02:10 Dose: 4 mg Documented By: RAVINDRA Oxycodone HCl (Oxycodone Hcl Immed Release 5 Mg Tablet) 5 mg PO ONCE PRN PRN Reason: Pain, Severe (Pain Scale 7-10) Sodium Chloride (0.9 % Sodium Chloride Flush 3 Ml Syringe) 3 ml IVFLUSH QSHIFT [facility] Last Admin: 08/01/23 20:08 Dose: 3 ml Documented By: RAVINDRA Valsartan (Valsartan 160 Mg Tablet) 160 mg PO DAILY [facility]; Protocol Labs 08/02/23 05:18 08/02/23 05:18 Labs: Laboratory Results - last 24 hr 08/01/23 08/02/23 11:28 05:18 MCV 87.0 MCH 28.7 MCHC 33.0 RDW 12.1 Plt Count 318 MPV 10.0 Immature Gran % (Auto) 0.4 Neut % (Auto) 83.4 H Lymph % (Auto) 9.0 L [place] % (Auto) 7.1 Eos % (Auto) 0.0 Baso % (Auto) 0.1 Lymph # (Auto) 1.4 [place] # (Auto) 1.1 Eos # (Auto) 0.0 Baso # (Auto) 0.0 Abs Immat Gran (auto) 0.07 H Absolute Neuts (auto) 13.2 H Absolute Nucleated RBC 0.000 Nucleated RBC % (auto) 0.0 Anion Gap 14 14 Estim Creat Clear Calc 139.6 164.0 Estimated GFR > 60 > 60 Random Glucose 166 H 102 Calcium 8.9 D 8.9 Procedures Date of Service Date of Service: 08/02/23 Progress Note: A&P Assessment and plan (1) S/P laparoscopic sleeve gastrectomy: Status: Acute (2) Morbid obesity: Status: Acute (3) HTN (hypertension) with goal to be determined: Status: Acute (4) VAHE on CPAP: Status: Acute (5) Hepatosplenomegaly: Status: Acute (6) NAFLD (nonalcoholic fatty liver disease): Status: Acute Plan The patient remains hemodynamically stable, is meeting hydration goals and has her diet plan. Plan discharge with outpatient follow-up in 1 week. Patient has phone numbers for the PAs and myself if there are questions, she will reach out with text. Time Spent With Patient Time: Total time managing care of this patient today ____ minutes. Quality Stroke Does the patient have a stroke diagnosis?: No VTE Prior VTE?: No VTE Risk Level:: Surgical - moderate VTE Device Contraindication: N/A - Device Ordered VTE Drug Contraindication: Treatment Not Indicated
[2023-08-02 07:17] VITALS: BP 138/79; PULSE 66; RESP 18; TEMP 36.1; O2SAT 98
[2023-08-02] MEDS: 0.9 % Sodium Chloride Flush 3 ML SYRINGE IVFLUSH (07:46)
[2023-08-02] MEDS: Valsartan 160 MG TABLET PO (07:46)
[2023-08-02] MEDS: Famotidine/PF 20 MG/2 ML VIAL IVPUSH (07:46)
[2023-08-02] MEDS: amLODIPine Besylate 5 MG TABLET PO (07:46)
--- NOTE | 2023-08-02 14:41 | HO.POSTANES ---
Post Anesthesia Evaluation Post Anesthesia Evaluation Date of Service: 08/02/23 Vital Signs: Vital Signs Temp Pulse Resp BP Pulse Ox O2 Del Method 08/02/23 07:17 97.0 F 66 18 138/79 98 Room Air 08/02/23 06:31 Room Air 08/02/23 03:50 97.2 F 76 18 133/69 96 Room Air Anesthesia: General Endotracheal-GETA Mental Status: Awake Pain Control: Satisfactory Nausea/Vomiting: None Hydration: Adequate Anesthesia-Related Issues: No Anes. Related Issues
== END 2023-08-02 09:15 | disposition home or self-care (01) | DRG 403 ==
LOC: HO.SSS 11:19 → HO.SSSA 11:22 → HO.S3 13:28
PROVIDERS: Nurse Practitioner; Physician Assistant Surgical; Admitting Provider Surgery; PCP Physician Assistant Medical; Visit Provider Surgery
PROC: 0DB64Z3 Excision of Stomach, Percutaneous Endoscopic Approach, Vertical (ICD-10-PCS; CPT 43845; principal; 2023-08-01 08:20)
DX: E66.01 Morbid (severe) obesity due to excess calories (principal); K76.0 Fatty (change of) liver, not elsewhere classified; I10 Essential (primary) hypertension; G47.33 Obstructive sleep apnea (adult) (pediatric); Z68.41 Body mass index [BMI] 40.0-44.9, adult; Z79.899 Other long term (current) drug therapy
CPT/HCPCS: 43775; 43659; 36415; 80048; 81025; 85014; 85018; 85025; 86850; 86900; 86901; 88307; 88342; C1713; C9145; J0131; J0690; J1100; J1170; J2405; J3010

== ENCOUNTER → 2023-08-01 11:13 | Outpatient (BNV) | payer BC, SELFPAY | PROVIDERS: Admitting Provider Surgery; PCP Physician Assistant Medical; Visit Provider Surgery | DX: E66.01 Morbid (severe) obesity due to excess calories (principal); Z68.41 Body mass index [BMI] 40.0-44.9, adult; Z98.84 Bariatric surgery status; Z90.3 Acquired absence of stomach [part of] | CPT/HCPCS: 43659; 43775 ==

== ENCOUNTER 2023-08-07 12:49 | Outpatient (AMB) | payer BC, SELFPAY ==
[2023-08-07 12:53] VITALS: BP 127/84; PULSE 104; TEMP 36.6; O2SAT 98; BMI 40.6
--- NOTE | 2023-08-07 12:53 | MHC.OFFVISWM ---
Intake VS Expanded 08/07/23 12:53 Height 5 ft 8 in Weight 267 lb 3.2 oz BMI 40.6 BP 127/84 Blood Pressure Location Rt brachial Blood Pressure Position Sitting Pulse 104 H Pulse Source Pulse Oximeter Temp 97.8 F Temperature Source Tympanic Pulse Oximetry 98 Oxygen Delivery Method Room Air Body Fat 114.8 Body Fat Percentage 43.0 Free Fat Mass 152.2 Muscle Mass 144.4 Visceral Mass 12.0 Water Mass 108.6 BMR 2,136 Intake Visit Reasons: (OV) 8 Days PO LSG 08/01/23 Allergies No Known Allergies Allergy (Verified 08/07/23 13:01) HPI HPI Comments History of Present Illness Details The patient returns to the office for follow-up after laparoscopic sleeve gastrectomy on 07/31/2023 without hiatal hernia repair. Since surgery, she reports she is doing well, denies any regurgitation, nausea, pain, vomiting. She is having no chest pain, leg swelling or shortness of breath. She is taking Protonix & sucralfate elixir as prescribed. She is congratulated on the ongoing weight loss today at 267.2 lbs/ BMI 40.6 representing 72 lbs of weight loss since entering the program on 04/24/23 at 339.8 lbs/BMI 51.7 Meal plan Celebrate 4:1 shakes, 3 shakes 1 scoop each total Only drinking about 30 oz water Exercise walking, interested in stationary bike PFSH Medical History Prolonged QT interval Pre-operative cardiovascular examination Pre-op evaluation Sleep apnea Hx of hiatal hernia HTN (hypertension) Surgical History Hx of laparoscopic partial gastrectomy Hx of adenoidectomy Hx of tonsillectomy Family History Mother Hypertension Father Hypertension Brother No problems noted. Daughter No problems noted. Daughter No problems noted. Social History Household Members: Spouse and Family Housing: House Are you a primary home care associate to a significant other at home: No Do you presently have visiting nurse or other home services: No Alcohol intake: current Alcohol intake frequency: does not drink Patient Tobacco Use Status: Never used Tobacco Review of Systems Const All systems reviewed & are unremarkable except as noted in HPI and below Reports as per HPI Physical Exam On exam, she is nontoxic and in good spirits She is in no acute respiratory distress Her abdominal incisions are well healed with no evidence of infection. No tenderness is present no hernias are noted I re timed her pulse since it was elevated at P104, it was 80 on recheck Results Reviewed Results Reviewed: Pathology from OR date showed hemorrhagic gastric mucosa without neoplasia nor H. pylori Assessment & Plan Assessment & Plan (1) S/P laparoscopic sleeve gastrectomy: Code(s): Z98.84 - Bariatric surgery status (2) Morbid obesity: Code(s): E66.01 - Morbid (severe) obesity due to excess calories (3) HTN (hypertension) with goal to be determined: Code(s): I10 - Essential (primary) hypertension (4) VAHE on CPAP: Code(s): G47.33 - Obstructive sleep apnea (adult) (pediatric); Z99.89 - Dependence on other enabling machines and devices (5) Adjustment disorder, unspecified: Code(s): F43.20 - Adjustment disorder, unspecified (6) BMI 40.0-44.9, adult: Code(s): Z68.41 - Body mass index [BMI] 40.0-44.9, adult Plan Instructions regarding meal plan reviewed. The importance of hydration was stressed and the patient will work on increasing her fluids. She has been restricting herself to 1 oz every hour when not drinking protein shakes. The patient was congratulated on her 72 lb weight loss since entering the surgical weight loss program. Meal plan: She will continue celebrate 4:1 shakes & increase to 4 scoops/ day (she'll add 1/3 scoop per 3 shakes) and prefers to use milk Patient will try using the stationary bike for 20 minutes per day and follow-up with me in 1 week. Given the importance of hydration and her meal plan, I do not believe it is appropriate for her to return to work at this time. If the patient has any problems, she will reach out by text or call the office. Otherwise we will see her in 1 week. Coding Level of Care Code Global (07398) Diagnoses S/P laparoscopic sleeve gastrectomy Z98.84 Morbid obesity E66.01 HTN (hypertension) with goal to be determined I10 VAHE on CPAP G47.33; Z99.89 Adjustment disorder, unspecified F43.20 BMI 40.0-44.9, adult Z68.41
== END 2023-08-07 14:12 | disposition home or self-care (01) ==
PROVIDERS: PCP Physician Assistant Medical; Visit Provider Surgery
DX: Z98.84 Bariatric surgery status (principal); E66.01 Morbid (severe) obesity due to excess calories; I10 Essential (primary) hypertension; G47.33 Obstructive sleep apnea (adult) (pediatric); Z99.89 Dependence on other enabling machines and devices; F43.20 Adjustment disorder, unspecified; Z68.41 Body mass index [BMI] 40.0-44.9, adult
CPT/HCPCS: 99024

== ENCOUNTER → 2023-08-07 12:49 | Outpatient (BNVA) | payer BC, SELFPAY | PROVIDERS: PCP Physician Assistant Medical; Visit Provider Surgery ==

== ENCOUNTER 2023-08-14 08:24 | Outpatient (AMB) | payer BC, SELFPAY ==
--- NOTE | 2023-08-14 08:30 | A.OFFVIS_ITS ---
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 Since surgery, she reports she is doing well, denies any regurgitation, nausea, pain, vomiting. She is having no chest pain, leg swelling or shortness of breath. In protein shake goals and anxious to return to work this August 16. 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 She declined the option of half days. She is taking Protonix & sucralfate elixir as prescribed. She is congratulated on the ongoing weight loss today at 262.2 lbs/ BMI 39.9 representing 78 lbs of weight loss since entering the program on 04/24/23 at 339.8 lbs/BMI 51.7 Meal plan Celebrate 4:1 shakes, 4 scoops total in 3 shakes with milk Drinking 48-60 oz water We discussed staying on the current plan for another 2 weeks. We discussed her concerns re: gum chewing & air-swallowing; she will refrain, but noted she misses chewing. Dietary plan to f.u with Liane & Janel in my absence was reviewed. Exercise walking 20+ minutes every other day joined a gym/dance studio where she can walk on treadmill. [facility] Medical History Prolonged QT interval Pre-operative cardiovascular examination Pre-op evaluation Sleep apnea Hx of hiatal hernia HTN (hypertension) Surgical History Hx of laparoscopic partial gastrectomy Hx of adenoidectomy Hx of tonsillectomy Family History Mother Hypertension Father Hypertension Brother No problems noted. Daughter No problems noted. Daughter No problems noted. Social History Household Members: Spouse and Family Housing: House Are you a primary client care representative to a significant other at home: No Do you presently have visiting nurse or other home services: No Alcohol intake: current Alcohol intake frequency: does not drink Patient Tobacco Use Status: Never used Tobacco Review of Systems Const All systems reviewed & are unremarkable except as noted in HPI and below Reports as per HPI Physical Exam On exam, she is nontoxic and in good spirits She is in no acute respiratory distress Her abdominal incisions are well healed with no evidence of infection. No tenderness is present no hernias are noted Results Reviewed Results Reviewed: Pathology from OR date showed hemorrhagic gastric mucosa without neoplasia nor H. pylori Assessment & Plan Assessment & Plan (1) S/P laparoscopic sleeve gastrectomy: Code(s): Z98.84 - Bariatric surgery status (2) BMI 39.0-39.9,adult: Code(s): Z68.39 - Body mass index [BMI] 39.0-39.9, adult (3) VAHE on CPAP: Code(s): G47.33 - Obstructive sleep apnea (adult) (pediatric); Z99.89 - Dependence on other enabling machines and devices (4) HTN (hypertension) with goal to be determined: Code(s): I10 - Essential (primary) hypertension (5) Morbid obesity: Code(s): E66.01 - Morbid (severe) obesity due to excess calories (6) Adjustment disorder, unspecified: Code(s): F43.20 - Adjustment disorder, unspecified (7) BMI 40.0-44.9, adult: Code(s): Z68.41 - Body mass index [BMI] 40.0-44.9, adult Plan Instructions regarding meal plan reviewed. She will continue the celebrate 4 in 1 shakes, 4 scoops in milk and follow-up with Liane Hammond and Janel León PA-C in 2 weeks during my absence. The importance of hydration was stressed and the patient will work on increasing her fluids. We discussed gum chewing since the patient notes that she this is the showing sensation and I explained about air trapping and discouraged the practice, but if she needs to do this in order to avoid making poor dietary choices, she should restricted to when she is at home to avoid the belching that will likely accompany the practice. The patient was congratulated on her 78 lb weight loss since entering the [facility] weight loss program. Meal plan: She will continue celebrate 4:1 shakes & increase to 4 scoops/ day (she'll add 1/3 scoop per 3 shakes) and prefers to use milk Patient will try using the stationary bike for 20 minutes per day and follow-up with me in 3 weeks when I return to the office; she will text weights weekly. Working towards daily exercise was recommended. Work note allowing her to r eturn this , August 16 was provided. If the patient has any problems, she will reach out by text or call the office. Coding Level of Care Code Global (02738) Diagnoses S/P laparoscopic sleeve gastrectomy Z98.84 BMI 39.0-39.9,adult Z68.39 VAHE on CPAP G47.33; Z99.89 HTN (hypertension) with goal to be determined I10 Morbid obesity E66.01 Adjustment disorder, unspecified F43.20 BMI 40.0-44.9, adult Z68.41
[2023-08-14 08:35] VITALS: BP 153/77; PULSE 90; TEMP 36.6; O2SAT 100; BMI 39.9
== END 2023-08-14 08:56 | disposition home or self-care (01) ==
PROVIDERS: PCP Physician Assistant Medical; Visit Provider Surgery
DX: Z98.84 Bariatric surgery status (principal); Z68.39 Body mass index [BMI] 39.0-39.9, adult; G47.33 Obstructive sleep apnea (adult) (pediatric); Z99.89 Dependence on other enabling machines and devices; I10 Essential (primary) hypertension; E66.01 Morbid (severe) obesity due to excess calories; F43.20 Adjustment disorder, unspecified; Z68.41 Body mass index [BMI] 40.0-44.9, adult
CPT/HCPCS: 99024

== ENCOUNTER → 2023-08-14 08:24 | Outpatient (BNVA) | payer BC, SELFPAY | PROVIDERS: PCP Physician Assistant Medical; Visit Provider Surgery ==

== ENCOUNTER 2023-08-30 15:13 | Outpatient (AMB) | payer BC, SELFPAY ==
--- NOTE | 2023-08-30 08:29 | A.OFFVIS_ITS ---
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 Presents for 1 month post op visit. Weight today is 253.6 pounds, with a BMI of 38.6. There has been a 86.2 pound weight loss,(initial weight 339.8 pounds) since starting the program on 04/24/23 reflecting a 25.4% total body weight loss and a weight loss of 26.6 pounds since surgery (operative weight 280.2 pounds) reflecting a 9.4% TBWL since surgery. No complaints of nausea, emesis, abdominal pain or reflux. Reports infrequent but normal bowel movements every 1-2 days. She saw her PCP on Sunday and was told to continue her BP meds until f/u with Cardiology, Dr. Ross, in October. Reports her BP at her PCP office was 116/70s. Denies any weakness or lightheadedness. Overall she feels wonderful and states she is ready to start a solid food. Not hungry. Prior to surgery Premier protein shakes, Pure protein bars, 6 oz protein and 6 oz veg at dinner Present meal plan includes: celebrate 4 in 1 shakes 1 and 1/3 scoop each shake x 3, 10-12, 2-4, 6-8 Drinking 48-60 oz water in addition to the shakes. ? Exercise routine includes: walking on treadmill 4-5 x per week, 30-45 minutes per session, 250-300 calories. PFSH Medical History Prolonged QT interval Pre-operative cardiovascular examination Pre-op evaluation Sleep apnea Hx of hiatal hernia HTN (hypertension) Surgical History Hx of laparoscopic partial gastrectomy Hx of adenoidectomy Hx of tonsillectomy Family History Mother Hypertension Father Hypertension Brother No problems noted. Daughter No problems noted. Daughter No problems noted. Social History Household Members: Spouse and Family Housing: House Are you a primary caregiver assisted living to a significant other at home: No Do you presently have visiting nurse or other home services: No Alcohol intake: current Alcohol intake frequency: does not drink Patient Tobacco Use Status: Never used Tobacco Assessment & Plan Assessment & Plan (1) Obesity (BMI 30-39.9): Code(s): E66.9 - Obesity, unspecified Plan: Pt states would like to start solids. Change meal plan to Celebrate 4 in 1, 2 scoops in 8 oz unsweetened almond milk at 10-12pm, 2-4 pm Pure protein bar cut in 6 from 5-8 pm Encouraged to increase exercise to 350-400 calories 5 x per week to achieve goal of burning 2000 gaudencio per week Pt was congratulated for her efforts thus far and she will f/u with Dr Rhodes in 3 weeks. Telehealth Telehealth Location of provider rendering services: practice address Location of patient: address on file Patient Identification confirmed using: Name, : Yes Telehealth method: video Patient verbally consented to treatment: Yes Patient verbally consented to billing insurance company: Yes Patient informed of any privacy concerns related to visit: Yes Minutes spent on Phone/Video with Pt.: 15 Coding Level of Care Code Global (66203) Diagnoses Obesity (BMI 30-39.9) E66.9
[2023-08-30 08:30] VITALS: BMI 38.6
== END 2023-08-30 15:17 | disposition home or self-care (01) ==
LOC: HO.HBS 15:13
PROVIDERS: PCP Physician Assistant Medical; Visit Provider Physician Assistant Surgical
DX: E66.9 Obesity, unspecified (principal); Z68.38 Body mass index [BMI] 38.0-38.9, adult
CPT/HCPCS: 99024

== ENCOUNTER → 2023-08-30 15:13 | Outpatient (BNVA) | payer BC, SELFPAY | PROVIDERS: PCP Physician Assistant Medical; Visit Provider Physician Assistant Surgical ==

== ENCOUNTER → 2023-09-03 07:46 | Outpatient (REF) | payer BC, SELFPAY ==
--- NOTE | 2023-09-03 07:50 | HM_ITS ---
Conclusion: 1. Patient was monitored total period of 3 days 2. Baseline was normal sinus rhythm with average heart of 60 beats per minute 3. No significant pauses noted 4. Significant artifact was noted 1 of the leads 5. Occasional PVCs noted with total burden of 0.9% 6. No patient reported events MTDD
--- NOTE | 2023-09-03 07:51 | CA_ITS ---
Acquisition Time: 2023-09-03 08:21:37 Total Exercise Time: 00:07:15 Test Indications: ABN EKG Medications: SEE H Protocol: PHILLIP Max HR: 162 BPM 91% of Pred: 178 BPM Max BP: 148/088 mmHG Max Work Load: 8.9 METS Exercise stress test exercise 7 min 15 sec of Phillip protocol achieving 91% MPHR, without anginal symptoms, with isolated PVCs, ventricular bigeminy, ventricular cuplets, with normotensive response to exercise, without EKG changes. Test reviewed with Dr. Frost. Referred By: Shannon Frost Overread By: SHANNON FROST
== END ==
LOC: HO.CARD 07:46
PROVIDERS: PCP Physician Assistant Medical; Visit Provider Internal Medicine
DX: R94.31 Abnormal electrocardiogram [ECG] [EKG] (principal); I49.3 Ventricular premature depolarization
CPT/HCPCS: 93017; 93242

== ENCOUNTER → 2023-09-03 07:51 | Outpatient (BNV) | payer BC, SELFPAY | PROVIDERS: PCP Physician Assistant Medical; Visit Provider Internal Medicine | DX: I49.3 Ventricular premature depolarization (principal); R94.31 Abnormal electrocardiogram [ECG] [EKG] | CPT/HCPCS: 93016; 93018; 93244 ==

== ENCOUNTER → 2023-09-07 15:27 | Outpatient (BNVA) | payer BC, SELFPAY | PROVIDERS: PCP Physician Assistant Medical; Visit Provider Dietitian, Registered | DX: E66.9 Obesity, unspecified (principal); Z98.84 Bariatric surgery status; Z71.3 Dietary counseling and surveillance | CPT/HCPCS: 97803 ==

== ENCOUNTER 2023-09-18 09:20 | Outpatient (AMB) | payer BC, SELFPAY ==
--- NOTE | 2023-09-18 15:21 | A.OFFVIS_ITS ---
Intake Intake Visit Reasons: TV PO LSG 08/01/23 Food Demonstrator Required: No Allergies No Known Allergies Allergy (Verified 09/18/23 15:21) HPI HPI Comments History of Present Illness0 Details The patient had a televisit after laparoscopic sleeve gastrectomy on 07/31/2023 without hiatal hernia repair. Since surgery, she reports she is doing well, denies any regurgitation, nausea, pain, vomiting. She is having no chest pain, leg swelling or shortness of breath. Per pt request, she was called at [phone] for today's follow-up. She has requested a follow-up in 2 months for a 3 month postop check and will continue to text me weights and follow-up with Liane Hammond in the middle of September. She is taking Protonix & sucralfate elixir as prescribed. She reports 2 brief episodes of lightheadedness that were extremely transient and lasted about 5 minutes requiring her to sit down and drink some water. She denied any chest pain, difficulty breathing, unilateral extremity weakness, other neurologic symptoms such as vertigo. She has been trending her blood pressure morning's, and evenings and has had no documented hypotension or tachycardia with either of these episodes. 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 As noted, there is no documented hypotension or tachycardia with either episode. She is congratulated on the ongoing weight loss reported at 243.4/BMI 37.3 262.2 lbs/ BMI 39.9 representing 96.4 lbs of weight loss since entering the program on 04/24/23 at 339.8 lbs/BMI 51.7 Meal plan Celebrate 4:1 shakes, 2 around 8am, 2 scoops at noon, a protein bar in unsweetened almond milk Drinking 48-60 oz water She's added 1 oz of white meat/fish for dinner She is pleased to report that she does not 80 anemia adjustment to her meal plan but is interested increasing activity Exercise walking 20+ minutes every other day joined a gym/dance studio where she can walk on treadmill. She was advised that she can increase her activities at lipids she is now 6 weeks postop. [facility] Medical History Prolonged QT interval Pre-operative cardiovascular examination Pre-op evaluation Sleep apnea Hx of hiatal hernia HTN (hypertension) Surgical History Hx of laparoscopic partial gastrectomy Hx of adenoidectomy Hx of tonsillectomy Family History Mother Hypertension Father Hypertension Brother No problems noted. Daughter No problems noted. Daughter No problems noted. Social History Household Members: Spouse and Family Housing: House Are you a primary primary health care nurse to a significant other at home: No Do you presently have visiting nurse or other home services: No Alcohol intake: current Alcohol intake frequency: does not drink Patient Tobacco Use Status: Never used Tobacco Review of Systems Const All systems reviewed & are unremarkable except as noted in HPI and below Assessment & Plan Assessment & Plan (1) S/P laparoscopic sleeve gastrectomy: Code(s): Z98.84 - Bariatric surgery status (2) HTN (hypertension) with goal to be determined: Code(s): I10 - Essential (primary) hypertension (3) VAHE on CPAP: Code(s): G47.33 - Obstructive sleep apnea (adult) (pediatric); Z99.89 - Dependence on other enabling machines and devices (4) Obesity (BMI 30-39.9): Code(s): E66.9 - Obesity, unspecified Plan The patient is congratulated on her 96.4 lb weight loss following sleeve gastrectomy. Patient is doing very well and can increase her activities gradually over the next 1-2 weeks since she is 6 weeks out from surgery. She has a follow-up with Liane Hammond for mid September and will follow-up with me in mid October. Patient is instructed to continue to text me weights and will reach out with any questions or concerns. Patient will follow-up with her PCP and Cardiology and continue to trend her blood pressure. She will monitor her dizziness symptoms and reach out if she is clinically worsening. Telehealth Telehealth Location of provider rendering services: practice address Location of patient: address on file Patient Identification confirmed using: Name, : Yes Telehealth method: voice only Patient verbally consented to treatment: Yes Patient verbally consented to billing insurance company: Yes Patient informed of any privacy concerns related to visit: Yes Coding Level of Care Code Global (80779) Diagnoses S/P laparoscopic sleeve gastrectomy Z98.84 HTN (hypertension) with goal to be determined I10 VAHE on CPAP G47.33; Z99.89 Obesity (BMI 30-39.9) E66.9
== END 2023-09-18 15:48 | disposition home or self-care (01) ==
PROVIDERS: PCP Physician Assistant Medical; Visit Provider Surgery
DX: E66.9 Obesity, unspecified (principal); Z68.37 Body mass index [BMI] 37.0-37.9, adult; Z90.3 Acquired absence of stomach [part of]; Z98.84 Bariatric surgery status; Z99.89 Dependence on other enabling machines and devices
CPT/HCPCS: 99024

== ENCOUNTER → 2023-09-18 09:20 | Outpatient (BNVA) | payer BC, SELFPAY | PROVIDERS: PCP Physician Assistant Medical; Visit Provider Surgery ==

== ENCOUNTER → 2023-10-03 15:12 | Outpatient (BNVA) | payer BC, SELFPAY | PROVIDERS: PCP Physician Assistant Medical; Visit Provider Dietitian, Registered | DX: E66.09 Other obesity due to excess calories (principal); Z68.36 Body mass index [BMI] 36.0-36.9, adult; Z90.3 Acquired absence of stomach [part of]; Z71.3 Dietary counseling and surveillance | CPT/HCPCS: 97803 ==

== ENCOUNTER 2023-10-30 13:50 | Outpatient (AMB) | payer BC, SELFPAY ==
--- NOTE | 2023-10-30 13:57 | MHC.OFFVISWM ---
Intake VS Expanded 10/30/23 14:05 BP 137/64 Blood Pressure Location Rt brachial Blood Pressure Position Sitting Pulse 73 Pulse Source Pulse Oximeter Temp 98.2 F Temperature Source Tympanic Pulse Oximetry 100 Oxygen Delivery Method Room Air Height 5 ft 8 in Weight 223 lb 12.8 oz BMI 34.0 Body Fat % 35.6 Body Fat Mass 79.6 Fat Free Mass 144.2 Visceral Fat Rating 8.0 Body Water % 46.0 Body Water Mass 103.0 Muscle Mass/Score 137.0 Basal Metabolic Rate/Score 1,971 Intake Visit Reasons: post op 3 months Allergies No Known Allergies Allergy (Verified 09/18/23 15:21) HPI HPI Comments History of Present Illness Details The patient had a televisit after laparoscopic sleeve gastrectomy on 07/31/2023 without hiatal hernia repair. Since surgery, she reports she is doing well, denies any regurgitation, GERD, nausea, pain, vomiting. She is having no chest pain, leg swelling or shortness of breath. She is congratulated on the ongoing weight loss reported and presents for today's visit with a weight of 223.8 lbs/BMI 34.0 representing 116 lbs of weight loss since entering the program on 04/24/23 at 339.8 lbs/BMI 51.7. She previously reported 2 brief episodes of lightheadedness that were extremely transient and have not recurred. She has a follow-up appointment with her air drier machine operator later this month and also has a follow-up with Liane Hammond, our dietitian. Meal plan Celebrate 4:1 shakes, 2 around 8am, 2 scoops at noon, a protein bar in unsweetened almond milk Drinking 48-60 oz water She's added 1 oz of white meat/fish for dinner She is pleased to with her meal plan. Exercise walking 45-60 min+ minutes every other day joined a gym/dance studio where she can walk on treadmill. [facility] Medical History Prolonged QT interval Pre-operative cardiovascular examination Pre-op evaluation Sleep apnea Hx of hiatal hernia HTN (hypertension) Surgical History Hx of laparoscopic partial gastrectomy Hx of adenoidectomy Hx of tonsillectomy Family History Mother Hypertension Father Hypertension Brother No problems noted. Daughter No problems noted. Daughter No problems noted. Social History Household Members: Spouse and Family Housing: House Are you a primary career professional to a significant other at home: No Do you presently have visiting nurse or other home services: No Alcohol intake: current Alcohol intake frequency: does not drink Patient Tobacco Use Status: Never used Tobacco Physical Exam On exam, she is nontoxic and in good spirits She is in no acute respiratory distress Her abdominal incisions are well healed with no evidence of infection. No tenderness is present no hernias are noted Redundant panniculus is noted with no current fungal infections or skin breakdown Assessment & Plan Assessment & Plan (1) S/P laparoscopic sleeve gastrectomy: Code(s): Z98.84 - Bariatric surgery status (2) HTN (hypertension) with goal to be determined: Code(s): I10 - Essential (primary) hypertension (3) VAHE on CPAP: Code(s): G47.33 - Obstructive sleep apnea (adult) (pediatric); Z99.89 - Dependence on other enabling machines and devices (4) Hepatosplenomegaly: Code(s): R16.2 - Hepatomegaly with splenomegaly, not elsewhere classified (5) NAFLD (nonalcoholic fatty liver disease): Code(s): K76.0 - Fatty (change of) liver, not elsewhere classified (6) Vitamin B1 deficiency: Code(s): E51.9 - Thiamine deficiency, unspecified (7) BMI 34.0-34.9,adult: Code(s): Z68.34 - Body mass index [BMI] 34.0-34.9, adult Plan The patient is congratulated on her 116 lb weight loss. No changes were made to her meal plan. She will follow-up with Liane Hammond at the end of the month. She will follow up with her air drier machine operator at the end of the month. Due to my medical absence, the patient will contact Janel León PA-C regarding weights, meal plan or any questions. I have ordered her 6 month labs today and she will return to clinic in 3 months for her 6 month follow-up. She is being set up with Janel León, but the appointment may be switched to me if I am available. Orders: Orders TSH reflex Free T4 Today E51.9 - Thiamine deficiency, unspecified, G47.33 - Obstructive sleep apnea (adult) (pediatric), I10 - Essential (primary) hypertension, K76.0 - Fatty (change of) liver, not elsewhere classified, R16.2 - Hepatomegaly with splenomegaly, not elsewhere classified, Z68.34 - Body mass index [BMI] 34.0-34.9, adult, Z98.84 - Bariatric surgery status, Z99.89 - Dependence on other enabling machines and devices Type and Screen Today E51.9 - Thiamine deficiency, unspecified, G47.33 - Obstructive sleep apnea (adult) (pediatric), I10 - Essential (primary) hypertension, K76.0 - Fatty (change of) liver, not elsewhere classified, R16.2 - Hepatomegaly with splenomegaly, not elsewhere classified, Z68.34 - Body mass index [BMI] 34.0-34.9, adult, Z98.84 - Bariatric surgery status, Z99.89 - Dependence on other enabling machines and devices C Reactive Protein Today E51.9 - Thiamine deficiency, unspecified, G47.33 - Obstructive sleep apnea (adult) (pediatric), I10 - Essential (primary) hypertension, K76.0 - Fatty (change of) liver, not elsewhere classified, R16.2 - Hepatomegaly with splenomegaly, not elsewhere classified, Z68.34 - Body mass index [BMI] 34.0-34.9, adult, Z98.84 - Bariatric surgery status, Z99.89 - Dependence on other enabling machines and devices Partial Thromboplastin Time Today E51.9 - Thiamine deficiency, unspecified, G47.33 - Obstructive sleep apnea (adult) (pediatric), I10 - Essential (primary) hypertension, K76.0 - Fatty (change of) liver, not elsewhere classified, R16.2 - Hepatomegaly with splenomegaly, not elsewhere classified, Z68.34 - Body mass index [BMI] 34.0-34.9, adult, Z98.84 - Bariatric surgery status, Z99.89 - Dependence on other enabling machines and devices Complete Blood Count Auto Diff Today E51.9 - Thiamine deficiency, unspecified, G47.33 - Obstructive sleep apnea (adult) (pediatric), I10 - Essential (primary) hypertension, K76.0 - Fatty (change of) liver, not elsewhere classified, R16.2 - Hepatomegaly with splenomegaly, not elsewhere classified, Z68.34 - Body mass index [BMI] 34.0-34.9, adult, Z98.84 - Bariatric surgery status, Z99.89 - Dependence on other enabling machines and devices Zinc Today E51.9 - Thiamine deficiency, unspecified, G47.33 - Obstructive sleep apnea (adult) (pediatric), I10 - Essential (primary) hypertension, K76.0 - Fatty (change of) liver, not elsewhere classified, R16.2 - Hepatomegaly with splenomegaly, not elsewhere classified, Z68.34 - Body mass index [BMI] 34.0-34.9, adult, Z98.84 - Bariatric surgery status, Z99.89 - Dependence on other enabling machines and devices Comprehensive Met. Panel 01/18/24 E51.9 - Thiamine deficiency, unspecified, G47.33 - Obstructive sleep apnea (adult) (pediatric), I10 - Essential (primary) hypertension, K76.0 - Fatty (change of) liver, not elsewhere classified, R16.2 - Hepatomegaly with splenomegaly, not elsewhere classified, Z68.34 - Body mass index [BMI] 34.0-34.9, adult, Z98.84 - Bariatric surgery status, Z99.89 - Dependence on other enabling machines and devices Vitamin A Today E51.9 - Thiamine deficiency, unspecified, G47.33 - Obstructive sleep apnea (adult) (pediatric), I10 - Essential (primary) hypertension, K76.0 - Fatty (change of) liver, not elsewhere classified, R16.2 - Hepatomegaly with splenomegaly, not elsewhere classified, Z68.34 - Body mass index [BMI] 34.0-34.9, adult, Z98.84 - Bariatric surgery status, Z99.89 - Dependence on other enabling machines and devices Hemoglobin A1c Today E51.9 - Thiamine deficiency, unspecified, G47.33 - Obstructive sleep apnea (adult) (pediatric), I10 - Essential (primary) hypertension, K76.0 - Fatty (change of) liver, not elsewhere classified, R16.2 - Hepatomegaly with splenomegaly, not elsewhere classified, Z68.34 - Body mass index [BMI] 34.0-34.9, adult, Z98.84 - Bariatric surgery status, Z99.89 - Dependence on other enabling machines and devices Prothrombin Time INR Today E51.9 - Thiamine deficiency, unspecified, G47.33 - Obstructive sleep apnea (adult) (pediatric), I10 - Essential (primary) hypertension, K76.0 - Fatty (change of) liver, not elsewhere classified, R16.2 - Hepatomegaly with splenomegaly, not elsewhere classified, Z68.34 - Body mass index [BMI] 34.0-34.9, adult, Z98.84 - Bariatric surgery status, Z99.89 - Dependence on other enabling machines and devices Vitamin B1 Today E51.9 - Thiamine deficiency, unspecified, G47.33 - Obstructive sleep apnea (adult) (pediatric), I10 - Essential (primary) hypertension, K76.0 - Fatty (change of) liver, not elsewhere classified, R16.2 - Hepatomegaly with splenomegaly, not elsewhere classified, Z68.34 - Body mass index [BMI] 34.0-34.9, adult, Z98.84 - Bariatric surgery status, Z99.89 - Dependence on other enabling machines and devices Lipid Panel Today E51.9 - Thiamine deficiency, unspecified, G47.33 - Obstructive sleep apnea (adult) (pediatric), I10 - Essential (primary) hypertension, K76.0 - Fatty (change of) liver, not elsewhere classified, R16.2 - Hepatomegaly with splenomegaly, not elsewhere classified, Z68.34 - Body mass index [BMI] 34.0-34.9, adult, Z98.84 - Bariatric surgery status, Z99.89 - Dependence on other enabling machines and devices Vitamin B12 Today E51.9 - Thiamine deficiency, unspecified, G47.33 - Obstructive sleep apnea (adult) (pediatric), I10 - Essential (primary) hypertension, K76.0 - Fatty (change of) liver, not elsewhere classified, R16.2 - Hepatomegaly with splenomegaly, not elsewhere classified, Z68.34 - Body mass index [BMI] 34.0-34.9, adult, Z98.84 - Bariatric surgery status, Z99.89 - Dependence on other enabling machines and devices Vitamin D 25-OH Total Today E51.9 - Thiamine deficiency, unspecified, G47.33 - Obstructive sleep apnea (adult) (pediatric), I10 - Essential (primary) hypertension, K76.0 - Fatty (change of) liver, not elsewhere classified, R16.2 - Hepatomegaly with splenomegaly, not elsewhere classified, Z68.34 - Body mass index [BMI] 34.0-34.9, adult, Z98.84 - Bariatric surgery status, Z99.89 - Dependence on other enabling machines and devices Ferritin Today E51.9 - Thiamine deficiency, unspecified, G47.33 - Obstructive sleep apnea (adult) (pediatric), I10 - Essential (primary) hypertension, K76.0 - Fatty (change of) liver, not elsewhere classified, R16.2 - Hepatomegaly with splenomegaly, not elsewhere classified, Z68.34 - Body mass index [BMI] 34.0-34.9, adult, Z98.84 - Bariatric surgery status, Z99.89 - Dependence on other enabling machines and devices IRON PROFILE Today E51.9 - Thiamine deficiency, unspecified, G47.33 - Obstructive sleep apnea (adult) (pediatric), I10 - Essential (primary) hypertension, K76.0 - Fatty (change of) liver, not elsewhere classified, R16.2 - Hepatomegaly with splenomegaly, not elsewhere classified, Z68.34 - Body mass index [BMI] 34.0-34.9, adult, Z98.84 - Bariatric surgery status, Z99.89 - Dependence on other enabling machines and devices Coding Level of Care Code Est Pt Level 4 (95572) Diagnoses S/P laparoscopic sleeve gastrectomy Z98.84 HTN (hypertension) with goal to be determined I10 VAHE on CPAP G47.33; Z99.89 Hepatosplenomegaly R16.2 NAFLD (nonalcoholic fatty liver disease) K76.0 Vitamin B1 deficiency E51.9 BMI 34.0-34.9,adult Z68.34
[2023-10-30 14:05] VITALS: BP 137/64; PULSE 73; TEMP 36.8; O2SAT 100; BMI 34.0
== END 2023-10-30 14:19 | disposition home or self-care (01) ==
PROVIDERS: PCP Physician Assistant Medical; Visit Provider Surgery
DX: E66.9 Obesity, unspecified (principal); Z68.34 Body mass index [BMI] 34.0-34.9, adult; Z90.3 Acquired absence of stomach [part of]; Z98.84 Bariatric surgery status
CPT/HCPCS: 99024

== ENCOUNTER → 2023-10-30 13:50 | Outpatient (BNVA) | payer BC, SELFPAY | PROVIDERS: PCP Physician Assistant Medical; Visit Provider Surgery ==

== ENCOUNTER 2023-11-13 13:15 | Outpatient (AMB) | payer BC, SELFPAY ==
--- NOTE | 2023-11-13 13:25 | A.OFFVIS_ITS ---
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 weight 339# - BMI 51.5 Preop weight 279# weight at 1 MO PO 253 - BMI 38.6 weight at 5 wks PO 250# weight at 9wks 237# current weight at 3.5 MO PO 219# Reason for consult elevated BMI Diet Assmnt Details Pt states she is doing really well feeling great, no complaints 8-10am 4in1 shake 2 scoop with almond m ilk 12-1:30pm same shake 3pm another shake of choice or bar 5pm dinner - 1oz white fish, chicken or ground turkey/chicken nd 1 oz cooked veg she is very content with the above Hydration: 48-60oz water , occasional crystal light exercise : walking 4-5x per week, cardio 45 minutes Vitamins: shakes Of note, pt will be traveling to [place] for 2 weeks in May 2024. She is very excited, would never be able to do something this active prior to bariatric surgery Dietary counseling reduction Diagnosis Nutrition problem #1 overweight/obesity As related to (etiology) #1 excess energy intake and physical inactivity As evidenced by (sign/symptom) #1 high BMI Monitoring/Goals Nutrition problem monitoring total energy intake, HgbA1c, level of knowledge/skill, total PRO intake, total CHO intake, weight and oral fluids Outcome progress progressing Learning/Education Readiness to learn excellent Stages of change action Most Recent Diabetes Results: No Data to Display [facility] Medical History Prolonged QT interval Pre-operative cardiovascular examination Pre-op evaluation Sleep apnea Hx of hiatal hernia HTN (hypertension) Surgical History Hx of laparoscopic partial gastrectomy Hx of adenoidectomy Hx of tonsillectomy Family History Mother Hypertension Father Hypertension Brother No problems noted. Daughter No problems noted. Daughter No problems noted. Social History Household Members: Spouse and Family Housing: House Are you a primary nonfarm animal caretaker to a significant other at home: No Do you presently have visiting nurse or other home services: No Alcohol intake: current Alcohol intake frequency: does not drink Patient Tobacco Use Status: Never used Tobacco Assessment & Plan Assessment & Plan (1) Obesity (BMI 30-39.9): Code(s): E66.9 - Obesity, unspecified Plan advance to raw ve today. nutrition follow up in 1 month Coding Level of Care Code Nutr Indiv Subseq (48442) Diagnoses Obesity (BMI 30-39.9) E66.9 Time Spent (min) 30
[2023-11-13 13:49] VITALS: BMI 33.3
== END 2023-11-13 13:47 | disposition home or self-care (01) ==
PROVIDERS: PCP Physician Assistant Medical; Visit Provider Dietitian, Registered
DX: E66.9 Obesity, unspecified (principal)

== ENCOUNTER 2023-11-13 13:15 | Outpatient (AMB) | payer BC, SELFPAY ==
[2023-11-13 13:57] VITALS: BP 124/68; PULSE 50; BMI 33.2
--- NOTE | 2023-11-13 13:57 | MHC.OFFVIS ---
Intake Vital Signs 11/13/23 13:57 Height 5 ft 8 in Weight 218 lb 4.122 oz BMI 33.2 BP 124/68 Blood Pressure Location Lt brachial Position Sitting Pulse 50 Intake Visit Reasons: follow up testing Intake Note: follow up testing Oracle Reports Developer Required: No Accompanied by: Self / Same As Patient Allergies No Known Allergies Allergy (Verified 11/13/23 13:58) Medication List - Last Reconciled 11/13/23 by Mohit Ross MD amlodipine 5 mg PO DAILY CPAP (CPAP Machine/Device) As directed omeprazole 40 mg (2 x 20 mg) PO DAILY 8 weeks valsartan 160 mg PO DAILY HPI HPI Comments History of Present Illness Details Idania returns for follow-up. Recently seen in consultation regarding preoperative stratification bariatric surgery. Unlimited exercise tolerance at baseline with no cardiac symptoms. She underwent echocardiogram as well as stress test preoperatively. The perfusion imaging was suboptimal quality due to body habitus. Any case, she had the surgery and did well. She lost more than 100 lb in weight. Otherwise, she EKG had shown QT prolongation. Patient herself does not have any history of syncope but there is a history of torsade in a great uncle but no details available as it was several decades ago. She was supposed to see Genetics at [facility] but has not seen them yet. [facility] Medical History Prolonged QT interval Pre-operative cardiovascular examination Pre-op evaluation Sleep apnea Hx of hiatal hernia HTN (hypertension) Surgical History Hx of laparoscopic partial gastrectomy Hx of adenoidectomy Hx of tonsillectomy Family History Mother Hypertension Father Hypertension Brother No problems noted. Daughter No problems noted. Daughter No problems noted. Social History Household Members: Spouse and Family Housing: House Are you a primary day care worker to a significant other at home: No Do you presently have visiting nurse or other home services: No Alcohol intake: current Alcohol intake frequency: does not drink Patient Tobacco Use Status: Never used Tobacco Review of Systems Const All systems reviewed & are unremarkable except as noted in HPI and below Reports as per HPI and Reports no additional complaints Eyes Reports as per HPI and Denies no additional complaints ENT Denies no additional complaints and Reports as per HPI Card Reports as per HPI, Reports no additional complaints, Denies acrocyanosis, Denies chest pain, Denies leg edema, Denies lightheadedness, Denies palpitations and Denies dyspnea Resp Reports as per HPI, Denies no additional complaints and Denies dyspnea GI Reports as per HPI and Denies no additional complaints Reports as per HPI Musc Reports no additional complaints and Reports as per HPI Skin/Breast Reports system reviewed and no additional complaints, except as documented Neuro Reports no additional complaints and Reports as per HPI Psych Reports no additional complaints and Reports as per HPI Endo Reports no additional complaints, Reports as per HPI and Denies palpitations Curt/Lymph Reports no additional complaints and Reports as per HPI Aller/Immun Reports no additional complaints and Reports as per HPI Physical Exam Vital Signs: Last Vital Signs Pulse 50 11/13/23 13:57 BP 124/68 11/13/23 13:57 BMI result Body Mass Index 33.2 Const General: comfortable and no acute distress Orientation/consciousness: patient oriented x3 HEENT Other: Unremarkable Head: Yes normal to inspection Neck Neck: Yes normal visual inspection Chest Chest palpation & inspection: normal inspection of the chest Resp Auscultation: clear to auscultation bilaterally Cardio Palpation: normal PMI Heart sounds: S1 normal heart sound present, S2 normal heart sound present, no gallops, no murmurs and no rubs GI Palpation (GI): Soft to palpation Back/Spine/Pelvis Other: unremarkable Skin General skin exam: no rashes or lesions noted Neuro General: patient oriented x3 Extrem General: Yes normal to inspection Psych Mental Status: mental status grossly normal Office Procedures EKG Details: EKG with sinus bradycardia at 59/Min; no significant ST-T changes; normal NV; corrected QT is 483 milliseconds. [id number], Complete Assessment & Plan Assessment & Plan (1) Morbid obesity: Code(s): E66.01 - Morbid (severe) obesity due to excess calories Plan: She has lost more than 100 lb in weight. She has done remarkably well in this regard. (2) HTN (hypertension) with goal to be determined: Code(s): I10 - Essential (primary) hypertension Plan: Patient is asking about stopping some medicines as she has lost lot of weight. She can try stopping the valsartan and if the blood pressure is still okay, then consider stopping amlodipine. However, it is possible that she may just need lower doses. (3) Prolonged QT interval: Code(s): R94.31 - Abnormal electrocardiogram [ECG] [EKG] Plan: In a prior EKG, corrected QT was 490 milliseconds. Today, 483 milliseconds. No worrisome findings on testing including stress test, echo as well as Holter. There is a vague history of torsade in a great uncle from decades ago and apparently family members for advised to get screen for prolonged QT. Will send to [facility] for evaluation. Consider starting beta-blockers like propranolol or nadolol in the future. Alternatively, just monitor. Advised to inform providers about prolonged QT, before going on antibiotics or new medications. Plan . Coding Level of Care Code Est Pt Level 4 (65632) Diagnoses Morbid obesity E66.01 HTN (hypertension) with goal to be determined I10 Prolonged QT interval R94.31 CPT Codes EKG - CPT: 11997-[id number], Complete ([id number])
== END 2023-11-13 14:19 | disposition home or self-care (01) ==
PROVIDERS: PCP Physician Assistant Medical; Visit Provider Internal Medicine
DX: E66.01 Morbid (severe) obesity due to excess calories (principal); I10 Essential (primary) hypertension; R94.31 Abnormal electrocardiogram [ECG] [EKG]
CPT/HCPCS: 93010; 99214

== ENCOUNTER → 2023-11-13 13:15 | Outpatient (BNVA) | payer BC, SELFPAY | PROVIDERS: PCP Physician Assistant Medical; Visit Provider Dietitian, Registered | DX: E66.01 Morbid (severe) obesity due to excess calories (principal); Z68.33 Body mass index [BMI] 33.0-33.9, adult; I10 Essential (primary) hypertension; R94.31 Abnormal electrocardiogram [ECG] [EKG]; Z98.84 Bariatric surgery status; Z71.3 Dietary counseling and surveillance | CPT/HCPCS: 93005; 97803 ==

== ENCOUNTER 2023-12-24 14:49 | Outpatient (AMB) | payer BC, SELFPAY ==
--- NOTE | 2023-12-24 14:53 | MHC.AMNUTRGE ---
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 weight 339# - BMI 51.5 Preop weight 279# weight at 1 MO PO 253 - BMI 38.6 weight at 5 wks PO 250# weight at 9wks 237# weight at 3.5 MO PO 219# weight at almost 4 MO PO 211# Reason for consult elevated BMI Diet Assmnt Details Pt reports feeling hungrier , especially in the evening after dinner 8-9am 4in1 shake 2 scoop with almond milk 12-1:30pm same shake 3pm protein bar pure protein 5pm dinner - 1oz white fish, chicken or ground turkey/chicken nd 1 oz cooked veg Hydration: 48-60oz water , occasional crystal light exercise : walking 4-5x per week, cardio 45 minutes, every 3 minutes puts up the incline up to 9 Vitamins: shakes Of note, pt will be traveling to [place] for 2 weeks in May 2024. She is very excited, would never be able to do something this active prior to bariatric surgery Dietary counseling reduction Diagnosis Nutrition problem #1 overweight/obesity As related to (etiology) #1 excess energy intake and physical inactivity As evidenced by (sign/symptom) #1 high BMI Monitoring/Goals Nutrition problem monitoring total energy intake, HgbA1c, level of knowledge/skill, total PRO intake, total CHO intake, weight and oral fluids Outcome progress progressing Learning/Education Readiness to learn excellent Stages of change action Most Recent Diabetes Results: No Data to Display PFSH Medical History Prolonged QT interval Pre-operative cardiovascular examination Pre-op evaluation Sleep apnea Hx of hiatal hernia HTN (hypertension) Surgical History Hx of laparoscopic partial gastrectomy Hx of adenoidectomy Hx of tonsillectomy Family History Mother Hypertension Father Hypertension Brother No problems noted. Daughter No problems noted. Daughter No problems noted. Social History Household Members: Spouse and Family Housing: House Are you a primary rn acute care to a significant other at home: No Do you presently have visiting nurse or other home services: No Alcohol intake: current Alcohol intake frequency: does not drink Patient Tobacco Use Status: Never used Tobacco Assessment & Plan Assessment & Plan (1) Obesity (BMI 30-39.9): Code(s): E66.9 - Obesity, unspecified Plan nutrition follow up 01/17 at 3pm . increase portions to 2oz protein, 2oz veg Coding Level of Care Code Nutr Indiv Subseq ([id number]) Diagnoses Obesity (BMI 30-39.9) E66.9 Time Spent (min) 25
[2023-12-24 15:02] VITALS: BMI 32.1
== END 2023-12-25 09:23 | disposition home or self-care (01) ==
PROVIDERS: PCP Physician Assistant Medical; Visit Provider Dietitian, Registered
DX: E66.9 Obesity, unspecified (principal)

== ENCOUNTER → 2023-12-24 14:49 | Outpatient (BNVA) | payer BC, SELFPAY | PROVIDERS: PCP Physician Assistant Medical; Visit Provider Dietitian, Registered | DX: E66.9 Obesity, unspecified (principal); Z68.32 Body mass index [BMI] 32.0-32.9, adult; Z98.84 Bariatric surgery status; Z71.3 Dietary counseling and surveillance | CPT/HCPCS: 97803 ==

== ENCOUNTER 2024-01-10 07:00 | Outpatient (REF) | payer BC, SELFPAY ==
[2024-01-10 07:33] LABS: MANUAL DIFF FLAG NO
[2024-01-10 07:53] LABS: Basophils Percent Auto 0.5 % (0-2); Eosinophils Percent Auto 0.7 % (0-4); Hematocrit 41.3 % (37.0-47.0); Hemoglobin 13.7 g/dl (12.0-16.0); Imm Gran Abs Auto 0.02 X10*3/uL (0.00-0.03); Imm Gran Pct Auto 0.4 % (0.0-0.4); Lymphocytes Absolute Auto 1.7 X10*3/uL (1.2-4.9); Lymphocytes Percent Auto 30.2 % (20-40); Mean Corpuscular HGB Conc 33.2 g/dl (31.0-35.0); Mean Corpuscular Hemoglobin 29.3 pg (27.0-33.0); Mean Corpuscular Volume 88.2 fL (80.0-98.0); Mean Platelet Volume 9.6 fL (9.4-12.3); Monocytes Absolute Auto 0.4 X10*3/uL (0.1-1.2); Monocytes Percent Auto 7.2 % (2-11); Neutrophils Absolute Auto 3.5 x10*3/uL (2.0-8.3); Platelet Count 239 X10*3/uL (160-400); Red Blood Count 4.68 X10*6/uL (4.20-5.50); Red Cell Distribution Width 12.4 % (11.0-16.0); White Blood Count 5.7 X10*3/uL (4.8-10.8)
[2024-01-10 07:54] LABS: Prothrombin Time 12.2 SEC (11.1-13.3)
[2024-01-10 07:57] LABS: Partial Thromboplastin Time 30.6 SEC (26.0-36.8)
[2024-01-10 08:01] LABS: Estimated Average Glucose 100 mg/dL; Hemoglobin A1c % 5.1 % (<6.0)
[2024-01-10 08:33] LABS: Alanine Aminotransferase 9 U/L (0-31); Albumin Level 4.2 g/dL (3.5-5.0); Alkaline Phosphatase 55 U/L (39-117); Anion Gap 14 (12-20); Aspartate Amino Transferase 15 U/L (5-31); Bilirubin Total 0.5 mg/dL (0.0-1.0); Blood Urea Nitrogen 16 mg/dL (9-16); C Reactive Protein 0.16 mg/dL (< or = 0.50); Calcium 9.4 mg/dL (8.4-10.2); Carbon Dioxide 24 mmol/L (22-29); Chloride 107 mmol/L (96-108); Cholesterol 175 mg/dL (<200); Estimated Glomerular Filt Rate > 60; Glucose Random 91 mg/dL (60-115); HDL Cholesterol 48 mg/dL (>40); Iron 122 mcg/dL (30-160); LDL Cholesterol Calculated 110 mg/dL (<100); Percent Iron Saturation 38 % (15-50); Potassium 4.3 mmol/L (3.3-5.1); Sodium 141 mmol/L (135-145); Total Iron Binding Capacity 320 mcg/dL (228-428); Total Protein 7.4 g/dL (6.5-8.0); Triglycerides 87 mg/dL (<150); Unsaturated Iron Binding 198 ug/dL
[2024-01-10 08:44] LABS: Vitamin B12 464 pg/mL (200-900)
[2024-01-10 08:53] LABS: Ferritin 86 ng/mL (10-250); TSH reflex Free T4 1.91 uIU/mL (0.32-4.0); Vitamin D 25-OH Total 56.3 ng/mL (>30)
[2024-01-12 13:13] LABS: Zinc 94 mcg/dL (60-130)
[2024-01-13 18:53] LABS: Vitamin A 39 mcg/dL (38-98)
[2024-01-15 15:48] LABS: Vitamin B1 24 nmol/L (8-30)
== END 2024-01-10 07:01 | disposition home or self-care (01) ==
LOC: HO.LAB 07:00
PROVIDERS: PCP Student in an Organized Health Care Education/Training Program; Visit Provider Surgery
DX: I10 Essential (primary) hypertension (principal); G47.33 Obstructive sleep apnea (adult) (pediatric); R16.2 Hepatomegaly with splenomegaly, not elsewhere classified; K76.0 Fatty (change of) liver, not elsewhere classified; E51.9 Thiamine deficiency, unspecified; Z99.89 Dependence on other enabling machines and devices; Z98.84 Bariatric surgery status
CPT/HCPCS: 36415; 80053; 80061; 82306; 82607; 82728; 83036; 83540; 84425; 84443; 84590; 84630; 85025; 85610; 85730; 86140; 86850; 86900; 86901

== ENCOUNTER 2024-01-18 15:02 | Outpatient (AMB) | payer BC, SELFPAY ==
--- NOTE | 2024-01-18 14:58 | A.OFFVIS_ITS ---
Intake Intake Visit Reasons: (TV) PO LSG 08/01/23 Allergies No Known Allergies Allergy (Verified 11/13/23 13:58) HPI Nutrition Presentation Details LSG DOS 08/01/23 [facility] [employer] weight 339# - BMI 51.5 Preop weight 279# weight at 1 MO PO 253 - BMI 38.6 weight at 5 wks PO 250# weight at 9wks 237# weight at 4 MO PO 211# currently 5.5 MO PO Reason for consult elevated BMI Diet Assmnt Details Last appt, Pt reported feeling hungrier , especially in the evening after dinner. we increased her portions and this has resolved. Howver she now reports struggling more with hunger in the AM. I had a few chips once and since then it spiraled . tried to help pt identify if this is emotional or true hunger but she is not sure. she is receptive to [facility] therapy groups but she is unsure of her work schedule. she will call if she decides. 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 12-1:30pm same shake 3pm protein bar pure protein - enjoys hayder 5pm dinner - 2oz white fish, chicken or ground turkey/chicken and 2oz veg Hydration: 48-60oz water , occasional crystal light exercise : walking 4-5x per week, cardio 45 minutes, every 3 minutes puts up the incline up to 9 Vitamins: shakes Of note, pt will be traveling to [place] for 2 weeks in May 2024. She is very excited, would never be able to do something this active prior to bariatric surgery Dietary counseling reduction Diagnosis Nutrition problem #1 overweight/obesity As related to (etiology) #1 excess energy intake and physical inactivity As evidenced by (sign/symptom) #1 high BMI Monitoring/Goals Nutrition problem monitoring total energy intake, HgbA1c, level of knowledge/skill, total PRO intake, total CHO intake, weight and oral fluids Outcome progress progressing Learning/Education Readiness to learn excellent Stages of change action Most Recent Diabetes Results: Cholesterol 175 mg/dL (<200) 01/10/24 HDL Cholesterol 48 mg/dL (>40) 01/10/24 Triglycerides 87 mg/dL (<150) 01/10/24 Creatinine 0.69 mg/dL (0.5-1.4) 01/10/24 Blood Urea Nitrogen 16 mg/dL (9-16) 01/10/24 Sodium 141 mmol/L (135-145) 01/10/24 Potassium 4.3 mmol/L (3.3-5.1) 01/10/24 Chloride 107 mmol/L (96-108) 01/10/24 Carbon Dioxide 24 mmol/L (22-29) 01/10/24 Calcium 9.4 mg/dL (8.4-10.2) 01/10/24 AST 15 U/L (5-31) 01/10/24 ALT 9 U/L (0-31) 01/10/24 Total Protein 7.4 g/dL (6.5-8.0) 01/10/24 Albumin 4.2 g/dL (3.5-5.0) 01/10/24 [facility] Medical History Prolonged QT interval Pre-operative cardiovascular examination Pre-op evaluation Sleep apnea Hx of hiatal hernia HTN (hypertension) Surgical History Hx of laparoscopic partial gastrectomy Hx of adenoidectomy Hx of tonsillectomy Family History Mother Hypertension Father Hypertension Brother No problems noted. Daughter No problems noted. Daughter No problems noted. Social History Household Members: Spouse and Family Housing: House Are you a primary care assistant to a significant other at home: No Do you presently have visiting nurse or other home services: No Alcohol intake: current Alcohol intake frequency: does not drink Patient Tobacco Use Status: Never used Tobacco Assessment & Plan Assessment & Plan (1) Obesity (BMI 30-39.9): Code(s): E66.9 - Obesity, unspecified (2) S/P laparoscopic sleeve gastrectomy: Code(s): Z98.84 - Bariatric surgery status Plan suggested a few different ways she can address AM hunger: either have a solid meal for breakfast and change protein shakes completely, have 1/2 bar in the AM, other half PA, have a small protein bar in additoin to her plan in the AM . She is also interested in going to therapy groups. She will see PA for next appt. Telehealth Telehealth Location of provider rendering services: other (home address, [facility] ) Location of patient: address on file Patient Identification confirmed using: Name, : Yes Telehealth method: voice only Patient verbally consented to treatment: Yes Patient verbally consented to billing insurance company: Yes Patient informed of any privacy concerns related to visit: Yes Minutes spent on Phone/Video with Pt.: 20 Coding Level of Care Code Nutr Indiv Subseq ([id number]) Diagnoses Obesity (BMI 30-39.9) E66.9 S/P laparoscopic sleeve gastrectomy Z98.84 Time Spent (min) 20
== END 2024-01-18 15:21 | disposition home or self-care (01) ==
LOC: HO.HBS 15:02
PROVIDERS: PCP Student in an Organized Health Care Education/Training Program; Visit Provider Dietitian, Registered
DX: E66.9 Obesity, unspecified (principal); Z98.84 Bariatric surgery status

== ENCOUNTER → 2024-01-18 15:02 | Outpatient (BNVA) | payer BC, SELFPAY | PROVIDERS: PCP Student in an Organized Health Care Education/Training Program; Visit Provider Dietitian, Registered | DX: E66.9 Obesity, unspecified (principal); Z98.84 Bariatric surgery status; Z71.3 Dietary counseling and surveillance | CPT/HCPCS: 97803 ==

== ENCOUNTER 2024-02-06 15:35 | Outpatient (AMB) | payer BC, SELFPAY ==
--- NOTE | 2024-02-06 15:37 | MHC.OFFVISWM ---
Intake VS Expanded 02/06/24 16:03 BP 157/74 H Blood Pressure Location Rt brachial Blood Pressure Position Sitting Pulse 71 Pulse Source Pulse Oximeter Temp 98.2 F Temperature Source Tympanic Pulse Oximetry 99 Oxygen Delivery Method Room Air Height 5 ft 8 in Weight 208 lb BMI 31.6 Body Fat % 32.7 Body Fat Mass 68.0 Fat Free Mass 140.0 Visceral Fat Rating 7.0 Body Water % 48.0 Body Water Mass 99.8 Muscle Mass/Score 133.0 Basal Metabolic Rate/Score 1,896 Intake Visit Reasons: (OV) PO LSG 08/01/23 Allergies No Known Allergies Allergy (Verified 11/13/23 13:58) Medication List - Last Reconciled 02/06/24 by YOLANDA Adan-C amlodipine 5 mg PO DAILY CPAP (CPAP Machine/Device) As directed HPI HPI Comments History of Present Illness Details 43 yo woman now 6 months s/p LSG with Dr Casper. [employer] wegiht of 339 lbs, TBWL is 131 lbs or 38.6% No n/v/abd pain or reflux. Meal plan: 8am - 4:1 2 scoops with UAM 10 am - may have half bar or 1 hb egg 12pm - 4:1 shake again 3pm - either full bar or half from am 6pm - 2oz protein and 2 oz vegetable. Exercise - 5d/week - 45 minutes treadmill - speed 3.0, incline 2 - 9, 350 - 400 calories. Post op complications:none VAHE: still using CPAP - will see pulmonology next month DM: never HTN: still on meds Hyperlipidemia: never GERD: 0 Satisfaction with present condition - satisfied [facility] Medical History Prolonged QT interval Pre-operative cardiovascular examination Pre-op evaluation Sleep apnea Hx of hiatal hernia HTN (hypertension) Surgical History Hx of laparoscopic partial gastrectomy Hx of adenoidectomy Hx of tonsillectomy Family History Mother Hypertension Father Hypertension Brother No problems noted. Daughter No problems noted. Daughter No problems noted. Social History Household Members: Spouse and Family Housing: House Are you a primary child care associate to a significant other at home: No Do you presently have visiting nurse or other home services: No Alcohol intake: current Alcohol intake frequency: does not drink Patient Tobacco Use Status: Never used Tobacco Physical Exam Vital Signs: Last Vital Signs Temp 98.2 F 02/06/24 16:03 Pulse 71 02/06/24 16:03 BP 157/74 H 02/06/24 16:03 Pulse Ox 99 02/06/24 16:03 Oxygen Delivery Method Room Air 02/06/24 16:03 BMI result Body Mass Index 31.6 GI Inspection: Yes striae (completely healed) Palpation (GI): Soft to palpation, nontender, no guarding, no hernias and no masses Assessment & Plan Assessment & Plan (1) Obesity (BMI 30-39.9): Code(s): E66.9 - Obesity, unspecified Plan: Will changge meal plan to less eating periods per day.- still needs 95 grams protien per day. Labs done December 8am - 4:1 shake - no change 12pm - lunch -2 oz proiten and 2 oz vegetable- 14 gram 3pm- another 4:1 shake 6pm- 3 oz prtoien and 2 oz vegetable Exercise - 45d treadmill - 400 caloires, total 2,00 gaudencio/week. speed 3.2, incline 4- [address] - 3 d/wk - if at gym - UE -15 lbs, ABD - 15 lbs, LE - 30 lbs. - 3sets of 15 reps. 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 6 weeks with PA. Post op labs done in December 2023 - all normal Patient is obese and is not considered stable at this time. I spent 30 minutes in total with patient reviewing/updating records, examining the patient and counseling the patient on weight management as detailed above. (2) S/P laparoscopic sleeve gastrectomy: Code(s): Z98.84 - Bariatric surgery status Plan see above Coding Level of Care Code Est Pt Level 4 (56091) Diagnoses Obesity (BMI 30-39.9) E66.9 S/P laparoscopic sleeve gastrectomy Z98.84
[2024-02-06 16:03] VITALS: BP 157/74; PULSE 71; TEMP 36.8; O2SAT 99; BMI 31.6
== END 2024-02-06 16:48 | disposition home or self-care (01) ==
PROVIDERS: PCP Physician Assistant Medical; Visit Provider Physician Assistant
DX: E66.9 Obesity, unspecified (principal); Z68.31 Body mass index [BMI] 31.0-31.9, adult; Z90.3 Acquired absence of stomach [part of]; Z98.84 Bariatric surgery status
CPT/HCPCS: 99214

== ENCOUNTER → 2024-02-06 15:35 | Outpatient (BNVA) | payer BC, SELFPAY | PROVIDERS: PCP Physician Assistant Medical; Visit Provider Physician Assistant ==

== ENCOUNTER 2024-03-18 15:19 | Outpatient (AMB) | payer BC, SELFPAY ==
--- NOTE | 2024-03-18 15:24 | A.OFFVIS_ITS ---
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 Presents for 7.5 month post op visit. Weight today is 216 pounds, with a BMI of 382.8. There has been a 123.8 pound weight loss,(initial weight 339.8 pounds) since starting the program on 04/24/23 reflecting a 36.4% total body weight loss and a weight loss of 64.2 pounds since surgery (operative weight 280.2 pounds) reflecting a 22.9% TBWL since surgery. No complaints of nausea, emesis, abdominal pain or reflux. Reports infrequent but normal bowel movements every 1-2 days. No further medications. Continues CPAP, followed up in February and ordered for repeat sleep study to be scheduled in near future. States her goal is to lose approx 20 pounds by May 19 for her [employer] cruise. Present meal plan includes: 8 am Celebrate 4 in 1 2 scoops in 8 oz almond milk 12pm 2 oz protein and 2 oz veg 3 pm another shake 530pm 3 oz protein and 2 oz veg Dinner 48-72 oz water Snacking on chips, goldfish, cheese stick, mid morning and when home from work. ? Exercise routine includes: [employer] walking on treadmill 4-5 x per week, 30-45 minutes per session, 3.2 speed incline 4-12, 400 calories. weights [facility] Medical History Prolonged QT interval Pre-operative cardiovascular examination Pre-op evaluation Sleep apnea Hx of hiatal hernia HTN (hypertension) Surgical History Hx of laparoscopic partial gastrectomy Hx of adenoidectomy Hx of tonsillectomy Family History Mother Hypertension Father Hypertension Brother No problems noted. Daughter No problems noted. Daughter No problems noted. Social History Household Members: Spouse and Family Housing: House Are you a primary childcare center administrator to a significant other at home: No Do you presently have visiting nurse or other home services: No Alcohol intake: current Alcohol intake frequency: does not drink Patient Tobacco Use Status: Never used Tobacco Assessment & Plan Assessment & Plan (1) Obesity (BMI 30-39.9): Code(s): E66.9 - Obesity, unspecified Category: Medical Plan: change meal plan 8 am Celebrate 4 in (1.5 scoops in 8 oz almond milk), I saw when she runs out of celebrate 4 in , she will use Premier protein, ready to drink, half with 6 oz unsweetened almond milk 12pm 2 oz protein and 2 oz veg 3 pm pure protein bar 530pm 3 oz protein and 2 oz veg 1/2 c fresh fruit. Increase exercise to 6 times per week. She states that her goal is to lose 20 lb in 2 months. Additionally, add weight training prior to treadmill, 20 minutes of weights and 40 minutes of treadmill.
[2024-03-18 15:32] VITALS: BP 146/68; PULSE 77; TEMP 35.6; O2SAT 100; BMI 32.8
== END 2024-03-18 16:08 | disposition home or self-care (01) ==
PROVIDERS: PCP Physician Assistant Medical; Visit Provider Physician Assistant Surgical
DX: E66.9 Obesity, unspecified (principal); Z68.32 Body mass index [BMI] 32.0-32.9, adult; Z90.3 Acquired absence of stomach [part of]; Z98.84 Bariatric surgery status
CPT/HCPCS: 99213

== ENCOUNTER → 2024-03-18 15:19 | Outpatient (BNVA) | payer BC, SELFPAY | PROVIDERS: PCP Physician Assistant Medical; Visit Provider Physician Assistant Surgical ==

== ENCOUNTER 2024-07-01 08:35 | Outpatient (AMB) | payer BC, SELFPAY ==
--- NOTE | 2024-07-01 08:27 | MHC.OFFVISWM ---
VS Expanded 07/01/24 08:28 Height 5 ft 8 in Weight 227 lb BMI 34.5 Body Fat % 44.3 Intake Visit Reasons: (TV) PO LSG 08/01/23 Allergies No Known Allergies Allergy (Verified 11/13/23 13:58) HPI Comments Details: This?a?43?yo female who is s/p LSG without hiatal hernia repair on?08/01/[address] Rhodes. Presents for 11 month post op visit. Weight today is 227 pounds, with a BMI of 34.5. There has been a 112.8 pound weight loss,(initial weight 339.8 pounds) since starting the program on 04/24/23 reflecting a 31.9% total body weight loss and a weight loss of 53.2 pounds since surgery (operative weight 280.2 pounds) reflecting a 18.9% TBWL since surgery. No complaints of nausea, emesis, abdominal pain or reflux. Reports infrequent but normal bowel movements every 1-2 days. Taking fusion MVI and [place] + d. She has gained 11 pounds since last being seen in February. She was on vacation in [place] and in [place]. She walked a lot but did not follow a meal plan. She started her meal plan and gym yesterday. No further medications. Continues CPAP, followed up in February and ordered for repeat sleep study to be scheduled in near future. Present meal plan includes: 8 am Premier protein, ready to drink, half with 6 oz unsweetened almond milk 10 am 1/2 c berries 12pm 2 oz protein and 2 oz veg 3 pm pure protein bar 530pm 3 oz protein and 2 oz veg 1/2 c fresh fruit. Dinner 48-72 oz water ? Exercise routine includes: [employer] walking on treadmill 4-5 x per week, 30-45 minutes per session, 3.2 speed incline 4-13, 400 calories. weights PFSH Medical History Prolonged QT interval Pre-operative cardiovascular examination Pre-op evaluation Sleep apnea Hx of hiatal hernia HTN (hypertension) Surgical History Hx of laparoscopic partial gastrectomy Hx of adenoidectomy Hx of tonsillectomy Family History Mother Hypertension Father Hypertension Brother No problems noted. Daughter No problems noted. Daughter No problems noted. Social History Household Members: Spouse and Family Housing: House Are you a primary infant childcare provider to a significant other at home: No Do you presently have visiting nurse or other home services: No Alcohol intake: current Alcohol intake frequency: does not drink Patient Tobacco Use Status: Never used Tobacco Telehealth Telehealth Telehealth Platform: Telephone Location of provider rendering services: practice address Location of patient: address on file Patient Identification confirmed using: Name, : Yes Telehealth method: voice only Patient verbally consented to treatment: Yes Patient verbally consented to billing insurance company: Yes Patient informed of any privacy concerns related to visit: Yes Minutes spent on Phone/Video with Pt.: 12 Assessment & Plan Assessment & Plan (1) Obesity (BMI 30-39.9): Code(s): E66.9 - Obesity, unspecified Category: Medical Plan: She states that she is now back on track. She resumed her meal plan and exercise plan yesterday. We discussed the importance of consistency and discipline. Goal is to be at the gym 7 days a week, 350-400 calories per day. I encouraged her to just do cardio for the next month. She explained her meal plan as listed above which is appropriate. She is no longer snacking. We will have her return to the office for her 1 year follow-up in July. I have encouraged her to send in her weight weekly and certainly to text if any questions.
[2024-07-01 08:28] VITALS: BMI 34.5
== END 2024-07-01 08:43 | disposition home or self-care (01) ==
LOC: HO.HBS 08:36
PROVIDERS: PCP Physician Assistant Medical; Visit Provider Physician Assistant Surgical
DX: E66.9 Obesity, unspecified (principal); Z68.34 Body mass index [BMI] 34.0-34.9, adult
CPT/HCPCS: 99442

== ENCOUNTER → 2024-07-01 08:35 | Outpatient (BNVA) | payer BC, SELFPAY | PROVIDERS: PCP Physician Assistant Medical; Visit Provider Physician Assistant Surgical ==

== ENCOUNTER 2024-10-09 15:23 | Outpatient (AMB) | payer BC, SELFPAY ==
--- NOTE | 2024-10-09 15:25 | A.OFFVIS_ITS ---
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 Presents for 1 year 2 month post op visit. Weight today is 241.8 pounds, with a BMI of 36.7. There has been a 98 pound weight loss,(initial weight 339.8 pounds) since starting the program on 04/24/23 reflecting a 28.8% total body weight loss and a weight loss of 38.4 pounds since surgery (operative weight 280.2 pounds) reflecting a 13.7% TBWL since surgery. No complaints of nausea, emesis, abdominal pain or reflux. Reports infrequent but normal bowel movements every 1-2 days. Taking fusion MVI and [place] + d. She has gained 14 pounds since last being seen in July. She has not communicated. Taking bariatric fusion mvi and salvador + D Present meal plan includes: 8 am Premier protein, ready to drink, 6 oz with 6 oz unsweetened almond milk 10 am 1/2 c berries 12pm 2 oz protein and 2 oz veg 3 pm pure protein bar 530pm 3 oz protein and 2 oz veg 1/2 c fresh fruit. Dinner 48-72 oz water snacking on things throughout the day. ? Exercise routine includes: 1 d per week at gym, treadmill, 300-400 salvador Any post op complications: none VAHE: resolved DM: never HTN: resolved Hyperlipidemia: never GERD:?0-5 scale ??0 = no symptoms ??1 = symptoms noticeable but not bothersome 2 =symptoms bothersome but not daily ? 3 = symptoms bothersome and daily 4 = symptoms affect daily activities 5 = symptoms are incapacitating, unable to do daily activities ? How bad is the heartburn: ? Heartburn while lying down: 0 ? Heartburn when standing up: 0 ? Heartburn after meals: 0 ? Does heartburn change your diet: 0 ? Does heartburn wake you up from sleep: 0 ? Do you have difficulty swallowin ? Do you have pain with swallowin ? If you take medicine for your reflux, does this affect your daily life: 0 Satisfaction with present condition - satisfied or not satisfied: disatisfied PFSH Medical History Prolonged QT interval Pre-operative cardiovascular examination Pre-op evaluation Sleep apnea Hx of hiatal hernia HTN (hypertension) Surgical History Hx of laparoscopic partial gastrectomy Hx of adenoidectomy Hx of tonsillectomy Family History Mother Hypertension Father Hypertension Brother No problems noted. Daughter No problems noted. Daughter No problems noted. Social History Household Members: Spouse and Family Housing: House Are you a primary day care center director to a significant other at home: No Do you presently have visiting nurse or other home services: No Alcohol intake: current Alcohol intake frequency: does not drink Patient Tobacco Use Status: Never used Tobacco Physical Exam Const General: cooperative and no acute distress Orientation/consciousness: patient oriented x3 Resp Effort & Inspection: normal respiratory effort Auscultation: clear to auscultation bilaterally Cardio Rate: regular rate Rhythm: regular rhythm GI Inspection: Yes normal to inspection and Yes incision (well healed) Palpation (GI): Soft to palpation and no masses Neuro General: patient oriented x3 Assessment & Plan Assessment & Plan (1) S/P laparoscopic sleeve gastrectomy: Code(s): Z98.84 - Bariatric surgery status Category: Surgical Plan: check 1 year postop labs Patient given the right BMI paperwork and encouraged to create a meal plan. Discussed the principles of purpose fullness, discipline, consistency and time. Discussed the importance of exercise as it relates to her weight loss and overall success to her goals. We will have her return to the office in approximately 5 weeks. Encouraged to text weight weekly and communicate with any questions or concerns. Orders: Orders Vitamin B12 and Folate Today E51.9 - Thiamine deficiency, unspecified, G47.33 - Obstructive sleep apnea (adult) (pediatric), I10 - Essential (primary) hypertension, K76.0 - Fatty (change of) liver, not elsewhere classified, Z98.84 - Bariatric surgery status, Z99.89 - Dependence on other enabling machines and devices Zinc Today E51.9 - Thiamine deficiency, unspecified, G47.33 - Obstructive sleep apnea (adult) (pediatric), I10 - Essential (primary) hypertension, K76.0 - Fatty (change of) liver, not elsewhere classified, Z98.84 - Bariatric surgery status, Z99.89 - Dependence on other enabling machines and devices C Reactive Protein Today E51.9 - Thiamine deficiency, unspecified, G47.33 - Obstructive sleep apnea (adult) (pediatric), I10 - Essential (primary) hypertension, K76.0 - Fatty (change of) liver, not elsewhere classified, Z98.84 - Bariatric surgery status, Z99.89 - Dependence on other enabling machines and devices Ferritin Today E51.9 - Thiamine deficiency, unspecified, G47.33 - Obstructive sleep apnea (adult) (pediatric), I10 - Essential (primary) hypertension, K76.0 - Fatty (change of) liver, not elsewhere classified, Z98.84 - Bariatric surgery status, Z99.89 - Dependence on other enabling machines and devices Vitamin D 25-OH Total Today E51.9 - Thiamine deficiency, unspecified, G47.33 - Obstructive sleep apnea (adult) (pediatric), I10 - Essential (primary) hypertension, K76.0 - Fatty (change of) liver, not elsewhere classified, Z98.84 - Bariatric surgery status, Z99.89 - Dependence on other enabling machines and devices Insulin Today E51.9 - Thiamine deficiency, unspecified, G47.33 - Obstructive sleep apnea (adult) (pediatric), I10 - Essential (primary) hypertension, K76.0 - Fatty (change of) liver, not elsewhere classified, Z98.84 - Bariatric surgery status, Z99.89 - Dependence on other enabling machines and devices Hemoglobin A1c Today E51.9 - Thiamine deficiency, unspecified, G47.33 - Obstructive sleep apnea (adult) (pediatric), I10 - Essential (primary) hypertension, K76.0 - Fatty (change of) liver, not elsewhere classified, Z98.84 - Bariatric surgery status, Z99.89 - Dependence on other enabling machines and devices Complete Blood Count Auto Diff Today E51.9 - Thiamine deficiency, unspecified, G47.33 - Obstructive sleep apnea (adult) (pediatric), I10 - Essential (primary) hypertension, K76.0 - Fatty (change of) liver, not elsewhere classified, Z98.84 - Bariatric surgery status, Z99.89 - Dependence on other enabling machines and devices Lipid Panel Today E51.9 - Thiamine deficiency, unspecified, G47.33 - Obstructive sleep apnea (adult) (pediatric), I10 - Essential (primary) hypertension, K76.0 - Fatty (change of) liver, not elsewhere classified, Z98.84 - Bariatric surgery status, Z99.89 - Dependence on other enabling machines and devices IRON PROFILE Today E51.9 - Thiamine deficiency, unspecified, G47.33 - Obstructive sleep apnea (adult) (pediatric), I10 - Essential (primary) hypertension, K76.0 - Fatty (change of) liver, not elsewhere classified, Z98.84 - Bariatric surgery status, Z99.89 - Dependence on other enabling machines and devices Comprehensive Met. Panel Today E51.9 - Thiamine deficiency, unspecified, G47.33 - Obstructive sleep apnea (adult) (pediatric), I10 - Essential (primary) hypertension, K76.0 - Fatty (change of) liver, not elsewhere classified, Z98.84 - Bariatric surgery status, Z99.89 - Dependence on other enabling machines and devices Vitamin B1 Today E51.9 - Thiamine deficiency, unspecified, G47.33 - Obstructive sleep apnea (adult) (pediatric), I10 - Essential (primary) hypertension, K76.0 - Fatty (change of) liver, not elsewhere classified, Z98.84 - Bariatric surgery status, Z99.89 - Dependence on other enabling machines and devices Vitamin A Today E51.9 - Thiamine deficiency, unspecified, G47.33 - Obstructive sleep apnea (adult) (pediatric), I10 - Essential (primary) hypertension, K76.0 - Fatty (change of) liver, not elsewhere classified, Z98.84 - Bariatric surgery status, Z99.89 - Dependence on other enabling machines and devices TSH reflex Free T4 Today E51.9 - Thiamine deficiency, unspecified, G47.33 - Obstructive sleep apnea (adult) (pediatric), I10 - Essential (primary) hypertension, K76.0 - Fatty (change of) liver, not elsewhere classified, Z98.84 - Bariatric surgery status, Z99.89 - Dependence on other enabling machines and devices
[2024-10-09 15:36] VITALS: BP 188/89; PULSE 70; TEMP 36.9; O2SAT 100; BMI 36.8
== END 2024-10-09 16:07 | disposition home or self-care (01) ==
PROVIDERS: PCP Physician Assistant Medical; Visit Provider Physician Assistant Surgical
DX: E66.09 Other obesity due to excess calories (principal); E66.812 Obesity, class 2; Z68.36 Body mass index [BMI] 36.0-36.9, adult; Z98.84 Bariatric surgery status
CPT/HCPCS: 99214

== ENCOUNTER 2024-10-25 07:04 | Outpatient (REF) | payer BC, SELFPAY ==
[2024-10-25 07:45] LABS: MANUAL DIFF FLAG NO
[2024-10-25 09:05] LABS: Basophils Percent Auto 0.6 % (0-2); Eosinophils Absolute Auto 0.1 X10*3/uL (0.0-0.4); Eosinophils Percent Auto 1.1 % (0-4); Hematocrit 39.9 % (37.0-47.0); Hemoglobin 13.7 g/dl (12.0-16.0); Imm Gran Abs Auto 0.02 X10*3/uL (0.00-0.03); Imm Gran Pct Auto 0.3 % (0.0-0.4); Lymphocytes Absolute Auto 2.1 X10*3/uL (1.2-4.9); Lymphocytes Percent Auto 33.5 % (20-40); Mean Corpuscular HGB Conc 34.3 g/dl (31.0-35.0); Mean Corpuscular Hemoglobin 29.8 pg (27.0-33.0); Mean Corpuscular Volume 86.9 fL (80.0-98.0); Mean Platelet Volume 9.5 fL (9.4-12.3); Monocytes Absolute Auto 0.5 X10*3/uL (0.1-1.2); Monocytes Percent Auto 7.5 % (2-11); Neutrophils Absolute Auto 3.6 x10*3/uL (2.0-8.3); Platelet Count 285 X10*3/uL (160-400); Red Blood Count 4.59 X10*6/uL (4.20-5.50); Red Cell Distribution Width 11.7 % (11.0-16.0); White Blood Count 6.3 X10*3/uL (4.8-10.8)
[2024-10-25 09:11] LABS: Estimated Average Glucose 108 mg/dL; Hemoglobin A1C 122.9463 umol/L; Hemoglobin A1c % 5.4 % (<6.0); Total Hemoglobin (HGBA1C) 3499.7105 umol/L
[2024-10-25 09:44] LABS: Alanine Aminotransferase 6 U/L (0-31); Albumin Level 4.2 g/dL (3.5-5.0); Alkaline Phosphatase 38 U/L (39-117); Anion Gap 13 (12-20); Aspartate Amino Transferase 15 U/L (5-31); Bilirubin Total 0.6 mg/dL (0.0-1.0); Blood Urea Nitrogen 11 mg/dL (9-16); C Reactive Protein 0.19 mg/dL (< or = 0.50); Calcium 8.9 mg/dL (8.4-10.2); Carbon Dioxide 25 mmol/L (22-29); Chloride 106 mmol/L (96-108); Cholesterol 215 mg/dL (<200); Estimated Glomerular Filt Rate > 60; Glucose Random 88 mg/dL (60-115); HDL Cholesterol 58 mg/dL (>40); Iron 151 mcg/dL (30-160); LDL Cholesterol Calculated 140 mg/dL (<100); Percent Iron Saturation 41 % (15-50); Potassium 4.3 mmol/L (3.3-5.1); Sodium 140 mmol/L (135-145); Total Iron Binding Capacity 370 mcg/dL (228-428); Total Protein 7.5 g/dL (6.5-8.0); Triglycerides 89 mg/dL (<150); Unsaturated Iron Binding 219 ug/dL
[2024-10-25 10:05] LABS: Ferritin 93 ng/mL (10-250); Insulin 6 uU/mL (2-29); TSH reflex Free T4 1.92 uIU/mL (0.32-4.0); Vitamin D 25-OH Total 47.8 ng/mL (>30)
[2024-10-25 10:14] LABS: Folate 16.7 ng/mL (> or = 4.0); Vitamin B12 553 pg/mL (200-900)
[2024-10-29 02:34] LABS: Zinc 91 mcg/dL (60-130)
[2024-10-30 22:18] LABS: Vitamin A 69 mcg/dL (38-98)
[2024-10-31 06:29] LABS: Vitamin B1 26 nmol/L (8-30)
== END 2024-10-25 07:05 | disposition home or self-care (01) ==
LOC: HO.LAB 07:04
PROVIDERS: PCP Family Medicine; Visit Provider Physician Assistant Surgical
DX: E51.9 Thiamine deficiency, unspecified (principal); K76.0 Fatty (change of) liver, not elsewhere classified; Z99.89 Dependence on other enabling machines and devices; G47.33 Obstructive sleep apnea (adult) (pediatric); I10 Essential (primary) hypertension; Z98.84 Bariatric surgery status; Z13.1 Encounter for screening for diabetes mellitus
CPT/HCPCS: 36415; 80053; 80061; 82306; 82607; 82728; 82746; 83036; 83525; 83540; 84425; 84443; 84590; 84630; 85025; 86140